=== PATIENT | female | born 1975 | race American Indian/Alaskan Native ===

== ENCOUNTER 2017-07-04 23:15 | Inpatient (IN) | payer MEDICAID ==
[2017-07-05 00:09] LABS: Basophils % (Auto) 0.6 % (0.0-1.8); Eosinophils % (Auto) 2.6 % (0.0-4.3); Mean Corpuscular HGB Conc 29 % (30-34); Platelet Count 619 K/mm3 (140-440); Red Blood Count 4.33 M/mm3 (3.65-5.03); White Blood Count 12.3 K/mm3 (4.5-11.0)
[2017-07-05 00:10] LABS: Hemoglobin 7.2 gm/dl (10.1-14.3)
[2017-07-05 00:11] LABS: Mean Corpuscular Hemoglobin 17 pg (28-32); Mean Corpuscular Volume 58 fl (79-97); Red Cell Distribution Width 22.2 % (13.2-15.2)
[2017-07-05 00:27] LABS: Anion Gap 19 mmol/L; BUN/Creatinine Ratio 11; Blood Urea Nitrogen 8 mg/dL (7-17); Calcium 8.4 mg/dL (8.4-10.2); Carbon Dioxide 22 mmol/L (22-30); Chloride 100.4 mmol/L (98-107); Glucose 129 mg/dL (65-100); Potassium 3.7 mmol/L (3.6-5.0); Sodium 138 mmol/L (137-145)
[2017-07-05 00:39] LABS: Urine Drugs of Abuse Note Disclamer
[2017-07-05 01:04] LABS: Bilirubin,Urine NEG (Negative); Blood,Urine LG (Negative); Ketones,Urine NEG (Negative); Leukocyte Esterase,Urine SM (Negative); Mucus,Urine FEW /HPF; Nitrite,Urine NEG (Negative)
[2017-07-05] MEDS ORDERED: NACL 0.9% 1000 ML 1,000 ML IV ONE (03:00)
[2017-07-05] MEDS ORDERED: NACL 0.9% 500 ML 500 ML IV ONE (03:10)
--- NOTE | 2017-07-05 03:17 | Emergency Department Report ---
ED Psych HPI - General Chief Complaint: Psych Stated Complaint: MH/MED REFILL Time Seen by Provider: 07/05/17 02:33 Source: patient Mode of arrival: Ambulatory Limitations: No Limitations - History of Present Illness Initial Comments: 41-year-old female with a past medical history of hypertension, bipolar, schizophrenia, and iron deficiency anemia presents to the hospital to the hospital with complaints of suicidal ideation 2 days. Does not have a plan. She has been noncompliant with all his psychiatric medications because she ran out 3 weeks ago. She is having voices telling her "she should have gotten ". She is also had a homicidal thoughts towards her mother for giving to her and she does not like her mother. Question patient complains of shortness of breath and lightheadedness, and fatigue today. She states her last menstrual cycle was heavy and has some mild residual spotting. She denies melena, hematochezia. She is compliant with iron tablets and reports a previous history of blood transfusion. Patient also complains of mild generalized abdominal pain which she states feels like she strained her muscle. - Related Data Home Medications Medication Instructions Recorded Confirmed Last Taken QUEtiapine [SEROquel] 300 mg PO QHS 06/15/13 06/15/13 07/01/13 11:00 1 tablet traZODone [Desyrel] 50 mg PO QHS 06/15/13 06/15/13 07/01/13 10:00 1 tablet FLUoxetine [Prozac] 20 mg PO QDAY 07/01/13 07/01/13 07/01/13 10:00 1 tablet Previous Rx's Medication Instructions Recorded Last Taken Type Benztropine [Cogentin] 1 mg PO DAILY #30 tab 01/01/14 Unknown Rx Divalproex ER [Depakote ER] 1,500 mg PO QHS #90 tablet 01/01/14 Unknown Rx Haloperidol [Haldol] 5 mg PO QHS #30 tablet 01/01/14 Unknown Rx Sertraline [Zoloft] 100 mg PO QAM #30 tablet 01/01/14 Unknown Rx traZODone [Desyrel] 100 mg PO QHS #30 tablet 01/01/14 Unknown Rx Allergies Allergy/AdvReac Type Severity Reaction Status Date / Time No Known Allergies Allergy Verified 04/18/15 14:55 ED Review of Systems ROS: Stated complaint: MH/MED REFILL Other details as noted in HPI Comment: All other systems reviewed and negative Other: Constitutional: No fevers chills Eyes: No eye pain visual changes ENT: No ear pain or throat pain Neck: Denies pain Respiratory: Denies cough Cardiovascular: Denies chest pain GI: Denies nausea, vomiting, or diarrhea : Denies dysuria Musculoskeletal: Denies back pain Skin: Denies rash, lesions, erythema Neurologic: Denies headache, numbness, weakness Psychiatric: Aspiration ED Past Medical Hx - Past Medical History Hx Hypertension: Yes Hx Psychiatric Treatment: Yes (BIPOLAR, Schizophrenia) Additional medical history: Bipolar, Schizophrenia, Chronic pain - Surgical History Past Surgical History?: No - Social History Smoking Status: Never Smoker Substance Use Type: None - Medications Home Medications: Home Medications Medication Instructions Recorded Confirmed Last Taken Type QUEtiapine [SEROquel] 300 mg PO QHS 06/15/13 06/15/13 07/01/13 11:00 History 1 tablet traZODone [Desyrel] 50 mg PO QHS 06/15/13 06/15/13 07/01/13 10:00 History 1 tablet FLUoxetine [Prozac] 20 mg PO QDAY 07/01/13 07/01/13 07/01/13 10:00 History 1 tablet Benztropine [Cogentin] 1 mg PO DAILY #30 tab 01/01/14 Unknown Rx Divalproex ER [Depakote ER] 1,500 mg PO QHS #90 tablet 01/01/14 Unknown Rx Haloperidol [Haldol] 5 mg PO QHS #30 tablet 01/01/14 Unknown Rx Sertraline [Zoloft] 100 mg PO QAM #30 tablet 01/01/14 Unknown Rx traZODone [Desyrel] 100 mg PO QHS #30 tablet 01/01/14 Unknown Rx ED Physical Exam - General Limitations: No Limitations - Other Other exam information: General: No limitations, patient is alert in no acute distress Head exam: Atraumatic, normocephalic Eyes exam: Normal appearance ENT: Moist mucous membrane, normal oropharynx Neck exam: Normal inspection, full range of motion, no meningismus nontender Respiratory exam: Clear to auscultation bilateral, no wheezes, rales, crackles Cardiovascular: Normal rate and rhythm, normal heart sounds Abdomen: Soft, nondistended, mild generalized tenderness to palpation, with normal bowel sounds, no rebound, or guarding Rectal: Guaiac positive, brown stool, no gross blood Extremity: Full range of motion normal inspection no deformity, tenderness or edema Back: Normal Inspection, full range of motion, no tenderness Neurologic: Alert, oriented x3, cranial nerves intact, no motor or sensory deficit Psychiatric: normal affect, normal mood Skin: Warm, dry, intact ED Course Vital Signs 07/04/17 07/04/17 07/05/17 23:45 23:47 03:11 Temperature 98.1 F 98.1 F 98.3 F Pulse Rate 104 H 104 H 103 H Respiratory 20 18 20 Rate Blood Pressure 159/87 Blood Pressure 159/87 130/85 [Right] O2 Sat by Pulse 99 100 99 Oximetry 07/05/17 03:16 Temperature Pulse Rate Respiratory 20 Rate Blood Pressure Blood Pressure [Right] O2 Sat by Pulse 100 Oximetry - Reevaluation(s) Reevaluation #1: 07/05/17 03:17 Positive orthostatics with increase in heart rate with standing ED Medical Decision Making - Lab Data Result diagrams: 07/04/17 23:56 07/04/17 23:56 Lab Results 07/04/17 07/04/17 07/04/17 Range/Units 23:56 23:56 23:56 WBC 12.3 H (4.5-11.0) K/mm3 RBC 4.33 (3.65-5.03) M/mm3 Hgb 7.2 L (10.1-14.3) gm/dl Hct 25.0 L (30.3-42.9) % MCV 58 L (79-97) fl MCH 17 L (28-32) pg MCHC 29 L (30-34) % RDW 22.2 H (13.2-15.2) % Plt Count 619 H (140-440) K/mm3 Lymph % (Auto) 35.4 H (13.4-35.0) % [place] % (Auto) 5.5 (0.0-7.3) % Eos % (Auto) 2.6 (0.0-4.3) % Baso % (Auto) 0.6 (0.0-1.8) % Lymph # 4.3 (1.2-5.4) K/mm3 [place] # 0.7 (0.0-0.8) K/mm3 Eos # 0.3 (0.0-0.4) K/mm3 Baso # 0.1 (0.0-0.1) K/mm3 Seg Neutrophils % 55.9 (40.0-70.0) % Seg Neutrophils # 6.9 (1.8-7.7) K/mm3 Sodium 138 (137-145) mmol/L Potassium 3.7 (3.6-5.0) mmol/L Chloride 100.4 (98-107) mmol/L Carbon Dioxide 22 (22-30) mmol/L Anion Gap 19 mmol/L BUN 8 (7-17) mg/dL Creatinine 0.7 (0.7-1.2) mg/dL Estimated GFR > 60 ml/min BUN/Creatinine Ratio 11 % Glucose 129 H (65-100) mg/dL Calcium 8.4 (8.4-10.2) mg/dL HCG, Qual (Negative) Urine Color (Yellow) Urine Turbidity (Clear) Urine pH (5.0-7.0) Ur Specific Hand[place] (1.003-1.030) Urine Protein (Negative) mg/dL Urine Glucose (UA) (Negative) mg/dL Urine Ketones (Negative) mg/dL Urine Blood (Negative) Urine Nitrite (Negative) Urine Bilirubin (Negative) Urine Urobilinogen (<2.0) mg/dL Ur Leukocyte Esterase (Negative) Urine WBC (Auto) (0.0-6.0) /HPF Urine RBC (Auto) (0.0-6.0) /HPF U Epithel Cells (Auto) (0-13.0) /HPF Urine Mucus /HPF Urine Opiates Screen Urine Methadone Screen Ur Barbiturates Screen Ur Phencyclidine Scrn Ur Amphetamines Screen U Benzodiazepines Scrn Urine Cocaine Screen U Marijuana (THC) Screen Drugs of Abuse Note Plasma/Serum Alcohol < 0.01 (0-0.07) gm% 07/04/17 07/05/17 07/05/17 Range/Units 23:56 00:34 00:34 WBC (4.5-11.0) K/mm3 RBC (3.65-5.03) M/mm3 Hgb (10.1-14.3) gm/dl Hct (30.3-42.9) % MCV (79-97) fl MCH (28-32) pg MCHC (30-34) % RDW (13.2-15.2) % Plt Count (140-440) K/mm3 Lymph % (Auto) (13.4-35.0) % [place] % (Auto) (0.0-7.3) % Eos % (Auto) (0.0-4.3) % Baso % (Auto) (0.0-1.8) % Lymph # (1.2-5.4) K/mm3 [place] # (0.0-0.8) K/mm3 Eos # (0.0-0.4) K/mm3 Baso # (0.0-0.1) K/mm3 Seg Neutrophils % (40.0-70.0) % Seg Neutrophils # (1.8-7.7) K/mm3 Sodium (137-145) mmol/L Potassium (3.6-5.0) mmol/L Chloride (98-107) mmol/L Carbon Dioxide (22-30) mmol/L Anion Gap mmol/L BUN (7-17) mg/dL Creatinine (0.7-1.2) mg/dL Estimated GFR ml/min BUN/Creatinine Ratio % Glucose (65-100) mg/dL Calcium (8.4-10.2) mg/dL HCG, Qual Negative (Negative) Urine Color Yellow (Yellow) Urine Turbidity Clear (Clear) Urine pH 5.0 (5.0-7.0) Ur Specific Handley 1.014 (1.003-1.030) Urine Protein 30 mg/dl (Negative) mg/dL Urine Glucose (UA) Neg (Negative) mg/dL Urine Ketones Neg (Negative) mg/dL Urine Blood Lg (Negative) Urine Nitrite Neg (Negative) Urine Bilirubin Neg (Negative) Urine Urobilinogen 2.0 (<2.0) mg/dL Ur Leukocyte Esterase Sm (Negative) Urine WBC (Auto) 11.0 H (0.0-6.0) /HPF Urine RBC (Auto) 10.0 (0.0-6.0) /HPF U Epithel Cells (Auto) 26.0 H (0-13.0) /HPF Urine Mucus Few /HPF Urine Opiates Screen Presumptive negative Urine Methadone Screen Presumptive negative Ur Barbiturates Screen Presumptive negative Ur Phencyclidine Scrn Presumptive negative Ur Amphetamines Screen Presumptive negative U Benzodiazepines Scrn Presumptive negative Urine Cocaine Screen Presumptive negative U Marijuana (THC) Screen Presumptive negative Drugs of Abuse Note Disclamer Plasma/Serum Alcohol (0-0.07) gm% - EKG Data -: EKG Interpreted by Me EKG shows normal: sinus rhythm (qrs 16), axis (qrs 16), QRS complexes (103), ST- T waves (no stemi/t inv. flat t v4-v6) Rate: normal (81) - Medical Decision Making 1013 signed Unable to medically clear pt at this time. significant Hemoglobin change compared to 2015. Pt is symptomatic and therefore requires a blood transfusion. 2 units PRBCs ordered. IRon profile added to blood work. ua has wbc but also high epi cells so likley a contaminate. no urine sx reported Guaiac-positive stools but no gross bleeding or melena - Differential Diagnosis SI, HI, psychosis, noncompliance, dehydration, anemia, Critical Care Time: No Critical care attestation.: If time is entered above; I have spent that time in minutes in the direct care of this critically ill patient, excluding procedure time. ED Disposition Clinical Impression: Symptomatic anemia, Suicidal ideation, Depression, Auditory hallucinations, Hypertension, well controlled Disposition: DC-09 OP ADMIT IP TO THIS HOSP Is pt being admited?: Yes Condition: Stable Time of Disposition: 03:23 (Dr Santos/hospitalist)
[2017-07-05] MEDS ORDERED: ZOFRAN IV PRN (04:37)
[2017-07-05] MEDS ORDERED: TYLENOL PO PRN (04:37)
[2017-07-05] MEDS ORDERED: DULCOLAX PR PRN (04:37)
[2017-07-05] MEDS ORDERED: MILK OF MAGNESIA PO PRN (04:37)
--- NOTE | 2017-07-05 06:11 | History and Physical Report ---
History of Present Illness Date of examination: 07/05/17 Date of admission: 07/05/17 04:37 History of present illness: 41-year-old male with a history of bipolar Schizophrenia, hypertension who has been off her medication 2 weeks and to emergency room with complaints of hallucinations, homicidal and suicidal ideations. Also complained of fatigue, shortness of breath Review Of Systems: Constitutional: no weight loss Ears, eyes, nose, mouth and throat: no nasal congestion, no nasal discharge, no sinus pressure, blurry vision, diplopia Neck: No neck pain or rigidity. Cardiovascular: no chest pain, orthopnea, palpitations Respiratory: No s cough Gastrointestinal: abdominal pain, hematochezia Genitourinary : no dysuria, frequency , hematuria Musculoskeletal: no muscle ache Integumentary: no rash, no pruritis Neurological: no parathesias, focal weakness Endocrine: no cold or heat intolerance, no polyuria or polydipsia Hematologic/Lymphatic: no easy bruising, no easy bleeding, no gland swelling Allergic/Immunologic: no urticaria, no angioedema. PAST MEDICAL HISTORY:bipolar Schizophrenia, hypertension PAST SURGICAL HISTORY: None FAMILY HISTORY:Schizophrenia SOCIAL HISTORY: Denies alcohol, tobacco, drugs Medications and Allergies Allergies Allergy/AdvReac Type Severity Reaction Status Date / Time No Known Allergies Allergy Verified 04/18/15 14:55 Home Medications Medication Instructions Recorded Confirmed Last Taken Type QUEtiapine [SEROquel] 300 mg PO QHS 06/15/13 06/15/13 07/01/13 11:00 History 1 tablet traZODone [Desyrel] 50 mg PO QHS 06/15/13 06/15/13 07/01/13 10:00 History 1 tablet FLUoxetine [Prozac] 20 mg PO QDAY 07/01/13 07/01/13 07/01/13 10:00 History 1 tablet Benztropine [Cogentin] 1 mg PO DAILY #30 tab 01/01/14 Unknown Rx Divalproex ER [Depakote ER] 1,500 mg PO QHS #90 tablet 01/01/14 Unknown Rx Haloperidol [Haldol] 5 mg PO QHS #30 tablet 01/01/14 Unknown Rx Sertraline [Zoloft] 100 mg PO QAM #30 tablet 01/01/14 Unknown Rx traZODone [Desyrel] 100 mg PO QHS #30 tablet 01/01/14 Unknown Rx Active Meds: Active Medications Acetaminophen (Tylenol) 650 mg PO Q4H PRN PRN Reason: Pain MILD(1-3)/Fever >100.5/BOJORQUEZ Benztropine Mesylate (Cogentin) 1 mg PO DAILY [facility] Bisacodyl (Dulcolax) 10 mg [place] QDAY PRN PRN Reason: Constipation unrelieved by MOM Divalproex Sodium (Depakote Er) 1,500 mg PO QHS [facility] Magnesium Hydroxide (Milk Of Magnesia) 30 ml PO Q4H PRN PRN Reason: Constipation Ondansetron HCl (Zofran) 4 mg IV Q8H PRN PRN Reason: N/V unrelieved by Reglan Quetiapine Fumarate (Seroquel) 300 mg PO QHS [facility] Exam - Physical Exam Narrative exam: Gen. appearance: Patient lying in bed in no acute distress HEENT: Normocephalic/atraumatic, pupils equal round reactive to light, extra alkaline movement intact, no scleral icterus, no JVD or thyromegaly or nodule, neck is supple, mucous membrane moist, no erythema or exudate Heart: S1-S2, regular rate and rhythm Lungs: Clear to auscultation bilateral breathing comfortable Abdomen: Positive bowel sounds, nontender, nondistended, no organomegaly Extremities: No edema, cyanosis, clubbing Neuro:: Oriented 3 , cranial nerves II-12 intact, speech, motor intact Skin: No rash, nodules, warm dry - Constitutional Vitals: Temp Pulse Resp BP Pulse Ox 98.3 F 103 H 20 130/85 100 07/05/17 03:11 07/05/17 03:11 07/05/17 03:16 07/05/17 03:11 07/05/17 03:16 Results - Labs CBC & Chem 7: 07/04/17 23:56 07/04/17 23:56 Assessment and Plan Assessment Homicidal or suicidal ideation Symptomatic ANEMIA Heme-positive stool Schizophrenia Plan Admit to medicine Transfuse packed red blood Consult psych, place with 1013, sitter Consult GI Restart appropriate outpatient medication
[2017-07-05] MEDS ORDERED: NACL 0.9% 500 ML 500 ML ONE (09:18)
[2017-07-05] MEDS ORDERED: COGENTIN PO SCH (10:00)
[2017-07-05] MEDS ORDERED: PROzac PO SCH ×2 (10:00→12:00)
--- NOTE | 2017-07-05 11:06 | Gastroenterology Consultation ---
<SHAWN FAY - Last Filed: 07/05/17 11:20> History of Present Illness - Reason for Consult Consult date: 07/05/17 anemia/heme +stool Requesting physician: SAMANTHA SPRAGUE - History of Present Illness Patient is a 41 y/o female with PMH of HTN, bipolar, schizophrenia, SHARI who presented to ED with c/o hallucinations, homicidal and suicidal ideations, fatigue, and SOB. She admits to being off all psychiatric medications x 2-3 weeks. HGB on admission was noted to be 7.2. GI has been consulted for anemia and heme +stool. This am pt was resting on stretcher with 1 unit PRBCs transfusion. No acute distress noted. No hematemesis, melena, or hematochezia. Stool was brown on rectal exam but active vaginal bleeding was noted. Pt states her menstrual cycles have been irregular with associated heavy bleeding. Current cycle has been present x 20 days per pt. Denies fever, CP, dizziness, SOB, wt loss, abd pain, N/V, diarrhea, or constipation. Takes Ibuprofen on average of 3 x per week. No hx of liver disease or PUD. No Fhx of GI cancers. No previous EGD or colonoscopy. Past History Past Medical History: anemia, hypertension, other (bipolar, schizophrenia) Past Surgical History: No surgical history Social history: lives with family. denies: smoking, alcohol abuse, prescription drug abuse Family history: other (schizophrenia) Medications and Allergies Allergies Allergy/AdvReac Type Severity Reaction Status Date / Time No Known Allergies Allergy Verified 04/18/15 14:55 Home Medications Medication Instructions Recorded Confirmed Last Taken Type QUEtiapine [SEROquel] 300 mg PO QHS 06/15/13 07/05/17 07/01/13 11:00 History 1 tablet traZODone [Desyrel] 50 mg PO QHS 06/15/13 07/05/17 07/01/13 10:00 History 1 tablet FLUoxetine [Prozac] 20 mg PO QDAY 07/01/13 07/05/17 07/01/13 10:00 History 1 tablet Benztropine [Cogentin] 1 mg PO DAILY #30 tab 01/01/14 07/05/17 Unknown Rx Divalproex ER [Depakote ER] 1,500 mg PO QHS #90 tablet 01/01/14 07/05/17 Unknown Rx Haloperidol [Haldol] 5 mg PO QHS #30 tablet 01/01/14 07/05/17 Unknown Rx Sertraline [Zoloft] 100 mg PO QAM #30 tablet 01/01/14 07/05/17 Unknown Rx Active Meds: Active Medications Acetaminophen (Tylenol) 650 mg PO Q4H PRN PRN Reason: Pain MILD(1-3)/Fever >100.5/BOJORQUEZ Benztropine Mesylate (Cogentin) 1 mg PO DAILY [facility] Last Admin: 07/05/17 10:24 Dose: 1 mg Bisacodyl (Dulcolax) 10 mg [place] QDAY PRN PRN Reason: Constipation unrelieved by MOM Divalproex Sodium (Depakote Er) 1,500 mg PO QHS [facility] Magnesium Hydroxide (Milk Of Magnesia) 30 ml PO Q4H PRN PRN Reason: Constipation Ondansetron HCl (Zofran) 4 mg IV Q8H PRN PRN Reason: N/V unrelieved by Reglan Quetiapine Fumarate (Seroquel) 300 mg PO QHS [facility] Review of Systems - Review of Systems All systems: negative Constitutional: fatigue Gastrointestinal: no hematemesis, no melena, no hematochezia Female Genitourinary: other (vaginal bleeding) Exam - Constitutional Vital Signs: Temp Pulse Resp BP Pulse Ox 98.5 F 86 16 140/68 94 07/05/17 10:32 07/05/17 10:32 07/05/17 10:32 07/05/17 10:32 07/05/17 10:32 General appearance: no acute distress, obese - EENT Eyes: PERRL, EOM intact ENT: hearing intact - Neck Neck: supple, normal ROM - Respiratory Respiratory: bilateral: CTA - Cardiovascular Rhythm: regular Heart Sounds: Present: S1 & S2 Extremities: No edema - Gastrointestinal General gastrointestinal: Present: soft, non-tender, non-distended, normal bowel sounds, other (obese) Rectal Exam: normal exam-external/orifice, normal rectal tone, stool brown - Genitourinary Female Genitourinary: other (vaginal bleeding) - Integumentary Integumentary: Present: warm, dry - Labs CBC & Chem 7: 07/04/17 23:56 07/04/17 23:56 Assessment and Plan 1.anemia 2.heme +stool 3.vaginal bleeding 4.Homicidal or suicidal ideation 5.schizophrenia -HGB 7.2- 1unit PRBCs transfusing -continue to monitor H/H and transfuse as needed -hold blood thinning medications -active vaginal bleeding but no hematemesis, melena, or hematochzia- rectal exam revealed brown stool -hemodynamically stable -etiology unclear- possibly 2/2 heavy irregular menstrual cycles -recommend a [employer] consult -Will schedule for EGD and colonoscopy in am -clear liquid diet today, then NPO after MN -will follow <FOZIA TRUJILLO R - Last Filed: 07/05/17 17:10> Medications and Allergies Active Meds: Active Medications Acetaminophen (Tylenol) 650 mg PO Q4H PRN PRN Reason: Pain MILD(1-3)/Fever >100.5/BOJORQUEZ Benztropine Mesylate (Cogentin) 0.5 mg PO BID [facility] Bisacodyl (Dulcolax) 10 mg [place] QDAY PRN PRN Reason: Constipation unrelieved by MOM Haloperidol (Haldol) 5 mg PO BID [facility] Magnesium Hydroxide (Milk Of Magnesia) 30 ml PO Q4H PRN PRN Reason: Constipation Ondansetron HCl (Zofran) 4 mg IV Q8H PRN PRN Reason: N/V unrelieved by Reglan Trazodone HCl (Desyrel) 50 mg PO QHS [facility] Exam - Constitutional Vital Signs: Temp Pulse Resp BP Pulse Ox 98.8 F 83 16 114/51 99 07/05/17 13:47 07/05/17 13:47 07/05/17 13:47 07/05/17 13:47 07/05/17 13:47 - Labs CBC & Chem 7: 07/04/17 23:56 07/04/17 23:56 Lab Results: Laboratory Results - last 24 hr 07/05/17 15:56 AST 19 ALT 15 Alkaline Phosphatase 94 Assessment and Plan Anemia likely due to menorrhagia. Will do EGD/colon to clear GI tract, kallie given NSAIDs.
--- NOTE | 2017-07-05 12:57 | Consultation ---
History of Present Illness - Reason for Consult Consult date: 07/05/17 Reason for consult: Mental Health Evaluation Requesting physician: CAM YOON - Chief Complaint Chief complaint: "The voices are bad" - History of Present Psychiatric Illness 41-year-old female with a past medical history of hypertension, bipolar, schizophrenia, and iron deficiency anemia presents to the hospital to the hospital with complaints of suicidal ideation 2 days. Today patient is calm, cooperative, but withdrawn during the assessment. She stated that she want to feel happy, but the voices continue to tell her she is "worthless." She stated the voices are overwhelming and want them to stop. She stated that the voices has caused her to be suicidal with a plan to overdose. She stated a past suicide attempt by overdosing on pills in the past. She stated that she deals with hearing voices all the time. She stated having erratic sleep, but denies a poor appetite. She denies HI's and VH's. She denies being depressed, but stated feeling sad. She denies recreational drug use and alcohol consumption (etoh). She stated that she takes Haldol, Trazodone, and Depakote. Medications and Allergies Allergies Allergy/AdvReac Type Severity Reaction Status Date / Time No Known Allergies Allergy Verified 04/18/15 14:55 Home Medications Medication Instructions Recorded Confirmed Last Taken Type QUEtiapine [SEROquel] 300 mg PO QHS 06/15/13 07/05/17 07/01/13 11:00 History 1 tablet traZODone [Desyrel] 50 mg PO QHS 06/15/13 07/05/17 07/01/13 10:00 History 1 tablet FLUoxetine [Prozac] 20 mg PO QDAY 07/01/13 07/05/17 07/01/13 10:00 History 1 tablet Benztropine [Cogentin] 1 mg PO DAILY #30 tab 01/01/14 07/05/17 Unknown Rx Divalproex ER [Depakote ER] 1,500 mg PO QHS #90 tablet 01/01/14 07/05/17 Unknown Rx Haloperidol [Haldol] 5 mg PO QHS #30 tablet 01/01/14 07/05/17 Unknown Rx Sertraline [Zoloft] 100 mg PO QAM #30 tablet 01/01/14 07/05/17 Unknown Rx Active Meds: Active Medications Acetaminophen (Tylenol) 650 mg PO Q4H PRN PRN Reason: Pain MILD(1-3)/Fever >100.5/BOJORQUEZ Bisacodyl (Dulcolax) 10 mg [place] QDAY PRN PRN Reason: Constipation unrelieved by MOM Magnesium Hydroxide (Milk Of Magnesia) 30 ml PO Q4H PRN PRN Reason: Constipation Ondansetron HCl (Zofran) 4 mg IV Q8H PRN PRN Reason: N/V unrelieved by Reglan Polyethylene Glycol/Electrolytes (Golytely) 4,000 ml PO ONCE ONE Stop: 07/05/17 15:01 Mental Status Exam - Vital signs Last Vital Signs Temp 98.5 F 07/05/17 12:17 Pulse 83 07/05/17 12:17 Resp 16 07/05/17 12:17 BP 128/96 07/05/17 12:17 Pulse Ox 99 07/05/17 12:17 - Exam Narrative exam: MSE: Appearance: calm, cooperative Behavior: regular eye contact Speech: regular rate and tone Mood: withdrawn, sad Affect: flat Thought Process: circumstantial Thought Content: denies HI's and VH, disorganized Motor Activity: ambulatory Cognition: A/Ox 3 Insight: variable Judgment: variable Results Result Diagrams: 07/04/17 23:56 07/04/17 23:56 All other labs normal. Assessment and Plan Assessment and plan: Impression: Schizoaffective DO. Today patient is calm, cooperative, but withdrawn during the assessment. Patient endorse SI's with a plan to overdose. DDx: R/O Bipolar DO, R/O MDD, Schizophrenia Recommendation/Plan: Continue 1013 with placement to inpatient psy services. Start Haldol 5 mg PO BID for psychosis, Cogentin 0.5 mg PO BID for EPS prevention, Trazodone 50 mg PO HS for sleep consolidation, and Depakote 500 mg PO BID for mood. Discussed possible suicidality/medication induced pavithra with patient reference Trazodone.
[2017-07-05] MEDS ORDERED: Fluarix Quad 2017-2018(36 MOS+ IM ONE (13:45)
[2017-07-05] MEDS ORDERED: GOLYTELY PO ONE (15:00)
[2017-07-05 17:00] LABS: Alanine Aminotransferase 15 units/L (7-56); Alkaline Phosphatase 94 units/L (35-129)
--- NOTE | 2017-07-05 17:33 | Consultation ---
History of Present Illness Consult date: 07/05/17 Reason for consult: menorrhagia History of present illness: Asked to see this 41-year-old who presents with co-morbid's including schizophrenia, HTN,SHARI and symptomatic anemia. She was noted to have vaginal bleeding but also dark-colored stool; GI was consulted. I am consulted for vaginal bleeding History is difficult due to patient's mental status, but she gives history of having heavy vaginal bleeding 20 days, used 4 pads per day. Bleeding stopped 2 days ago and she is spotting at this time. I am not quite sure of prior menstrual history but patient claims to be regular. 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 denies: smoking Medications and Allergies Allergies Allergy/AdvReac Type Severity Reaction Status Date / Time No Known Allergies Allergy Verified 04/18/15 14:55 Home Medications Medication Instructions Recorded Confirmed Last Taken Type QUEtiapine [SEROquel] 300 mg PO QHS 06/15/13 07/05/17 07/01/13 11:00 History 1 tablet traZODone [Desyrel] 50 mg PO QHS 06/15/13 07/05/17 07/01/13 10:00 History 1 tablet FLUoxetine [Prozac] 20 mg PO QDAY 07/01/13 07/05/17 07/01/13 10:00 History 1 tablet Benztropine [Cogentin] 1 mg PO DAILY #30 tab 01/01/14 07/05/17 Unknown Rx Divalproex ER [Depakote ER] 1,500 mg PO QHS #90 tablet 01/01/14 07/05/17 Unknown Rx Haloperidol [Haldol] 5 mg PO QHS #30 tablet 01/01/14 07/05/17 Unknown Rx Sertraline [Zoloft] 100 mg PO QAM #30 tablet 01/01/14 07/05/17 Unknown Rx Active Meds: Active Medications Acetaminophen (Tylenol) 650 mg PO Q4H PRN PRN Reason: Pain MILD(1-3)/Fever >100.5/BOJORQUEZ Benztropine Mesylate (Cogentin) 0.5 mg PO BID [facility] Bisacodyl (Dulcolax) 10 mg [place] QDAY PRN PRN Reason: Constipation unrelieved by MOM Haloperidol (Haldol) 5 mg PO BID [facility] Magnesium Hydroxide (Milk Of Magnesia) 30 ml PO Q4H PRN PRN Reason: Constipation Ondansetron HCl (Zofran) 4 mg IV Q8H PRN PRN Reason: N/V unrelieved by Reglan Trazodone HCl (Desyrel) 50 mg PO QHS [facility] Review of Systems Constitutional: no fever, no chills Cardiovascular: no chest pain, no orthopnea, no shortness of breath Respiratory: no shortness of breath, no dyspnea on exertion Gastrointestinal: no abdominal pain, no nausea Genitourinary: vaginal bleeding - Vital Signs Vital signs: Vital Signs Temp Pulse Resp BP Pulse Ox 98.1 F 104 H 20 159/87 99 07/04/17 23:45 07/04/17 23:45 07/04/17 23:45 07/04/17 23:45 07/04/17 23:45 Temp Pulse Resp BP Pulse Ox 98.8 F 83 16 114/51 99 07/05/17 13:47 07/05/17 13:47 07/05/17 13:47 07/05/17 13:47 07/05/17 13:47 - Physical Exam Abdomen: Positive: normal appearance, soft. Negative: distention, tenderness, guarding, rigidity Genitourinary (Female): Positive: normal external genitalia Cervix: Negative: lesion (bimanual exam), discharge Uterus: Positive: other (unable to palpate uterus due to body habitus) Adnexa: both: normal Extremities: Positive: normal Results Result Diagrams: 07/04/17 23:56 07/04/17 23:56 Abnormal lab results 07/05/17 Range/Units 15:56 Valproic Acid < 2.8 L (50-100) ug/mL All other labs normal. Assessment and Plan A: AUB/HMB -stable P: -Agree with blood transfusion -She is a patient of [facility]. Have spoken to the office and they are aware of her -She's currently not actively bleeding, no other LIBRARY CIRCULATION TECHNICIAN intervention needed in- house -She will benefit from outpatient workup including ultrasound and likely endometrial biopsy -Will sign off at this time, please call with questions - Patient Problems (1) Abnormal uterine bleeding (AUB) Current Visit: Yes Status: Acute
--- NOTE | 2017-07-05 18:26 | Event Note ---
Date: 07/12/17 Patient seen and examined medical records reviewed Admitted this morning with vaginal and GI bleeding, suicidal ideation Consults and recommendations noted in appreciated Continue current management Plan of care discussed with the patient and her nurse
[2017-07-05] MEDS: COGENTIN PO SCH (21:53)
[2017-07-05] MEDS: DESYREL PO SCH (21:53)
[2017-07-05] MEDS: HALDOL PO SCH (21:53)
[2017-07-06 06:03] LABS: Mean Corpuscular HGB Conc 30 % (30-34); Platelet Count 503 K/mm3 (140-440); Red Blood Count 4.38 M/mm3 (3.65-5.03); White Blood Count 9.4 K/mm3 (4.5-11.0)
[2017-07-06 06:13] LABS: Hemoglobin 8.2 gm/dl (10.1-14.3); INR 1.03 (0.87-1.13)
[2017-07-06 06:14] LABS: Hematocrit 27.7 % (30.3-42.9); Mean Corpuscular Hemoglobin 19 pg (28-32); Mean Corpuscular Volume 63 fl (79-97); Red Cell Distribution Width 29.3 % (13.2-15.2)
[2017-07-06 06:24] LABS: Anion Gap 16 mmol/L; BUN/Creatinine Ratio 8; Blood Urea Nitrogen 5 mg/dL (7-17); Calcium 8.2 mg/dL (8.4-10.2); Carbon Dioxide 25 mmol/L (22-30); Chloride 101.3 mmol/L (98-107); Glucose 84 mg/dL (65-100); Potassium 3.7 mmol/L (3.6-5.0); Sodium 139 mmol/L (137-145)
[2017-07-06 08:12] LABS: Anisocytosis 3+; Blastocytes % (Manual) 0 %; Microcytosis 2+; Polychromasia 2+
[2017-07-06 08:13] LABS: Target Cells Few; Tear Drop Cells Few
[2017-07-06 08:14] LABS: Diff Status Complete; Ovalocytes 1+; Platelet Estimate Consistent w Auto
[2017-07-06] MEDS: COGENTIN PO SCH ×2 (10:00→22:47)
[2017-07-06] MEDS: HALDOL PO SCH ×2 (10:00→22:47)
[2017-07-06] MEDS ORDERED: NACL 0.9% 1000 ML 1,000 ML ONE (11:02)
[2017-07-06] MEDS ORDERED: Fluarix Quad 2017-2018(36 MOS+ IM ONE (12:00)
--- NOTE | 2017-07-06 13:37 | Anesthesia Consultation ---
Anesthesia Consult and Med Hx Date of service: 07/06/17 - Airway Anesthetic Teeth Evaluation: Good ROM Head & Neck: Adequate Mental/Hyoid Distance: Adequate Mallampati Class: Class II Intubation Access Assessment: Probably Good - Pulmonary Exam CTA: Yes - Cardiac Exam Cardiac Exam: RRR - Pre-Operative Health Status ASA Pre-Surgery Classification: ASA3 Proposed Anesthetic Plan: MAC - Pulmonary Hx Asthma: No COPD: No Hx Pneumonia: No - Cardiovascular System Hx Hypertension: Yes - Central Nervous System Hx Psychiatric Problems: Yes (Pt states two times in Hospital.) - Endocrine Hx End Stage Renal Disease: No - Hematic Hx Anemia: Yes - Other Systems Hx Alcohol Use: No Hx Substance Use: No Hx Obesity: Yes (morbid)
[2017-07-06] MEDS ORDERED: PEPCID IV ONE (13:50)
[2017-07-06] MEDS ORDERED: NACL 0.9% 1000 ML 1,000 ML IV SCH (14:00)
[2017-07-06] MEDS ORDERED: PEPCID IV NR (14:00)
[2017-07-06] MEDS ORDERED: XYLOCAINE MPF 2% ONE (14:00)
--- NOTE | 2017-07-06 14:00 | Progress Note ---
Subjective - Reason for Consult Consult date: 07/06/17 Reason for consult: Psychiatry Follow-up - Chief Complaint Chief complaint: "The voices are going away" 41-year-old female with a past medical history of hypertension, bipolar, schizophrenia, and iron deficiency anemia presents to the hospital to the hospital with complaints of suicidal ideation 2 days. Today patient is calm and cooperative during the assessment. She stated that the voices that she was hearing on admission are starting to "cease." She stated that she had a procedure pending. She denies SI/HI's and VH's. She denies any side effects of her medications. Mental Status Exam - Vital signs Last Vital Signs Temp 98.3 F 07/06/17 13:19 Pulse 75 07/06/17 13:19 Resp 18 07/06/17 13:19 BP 118/62 07/06/17 13:19 Pulse Ox 98 07/06/17 13:19 - Exam Narrative exam: MSE: Appearance: calm, cooperative Behavior: regular eye contact Speech: regular rate and tone Mood: "okay" Affect: congruent to mood Thought Process: circumstantial Thought Content: denies SI/HI's and VH's, intermittent AH's Motor Activity: ambulatory Cognition: A/Ox 3 Insight: variable Judgment: variable Assessment and Plan Impression: Schizoaffective DO. Today patient is calm and cooperative during the assessment. Intermittent AH's. DDx: R/O Bipolar DO, R/O MDD, Schizophrenia Recommendation/Plan: Continue 1013. Will evaluate patient daily to determine proper dispo once medically cleared. Continue Haldol 5 mg PO BID for psychosis, Cogentin 0.5 mg PO BID for EPS prevention, Trazodone 50 mg PO HS for sleep consolidation, and Depakote 500 mg PO BID for mood. Discussed possible suicidality/medication induced pavithra with patient reference Trazodone.
[2017-07-06] MEDS ORDERED: DIPRIVAN 10 MG/ML IV ONE ×2 (15:04)
--- NOTE | 2017-07-06 15:45 | Post Operative Note ---
Pre-op diagnosis: Anemia, Heme + stool Post-op diagnosis: other (Normal EGD and colonoscopy) Findings: 1. Normal EGD and colonoscopy Procedure: EGD/Colonoscopy Anesthesia: MAC Surgeon: FOZIA TRUJILLO Estimated blood loss: none Condition: stable Disposition: floor (Anemia likely due to menorrhagia, and Heme + stool was likely due to vaginal bleed. Will sign off. Okay to go from GI standpoint.)
--- NOTE | 2017-07-06 16:30 | Post Anesthesia Evaluation ---
- Post Anesthesia Evaluation Patient Participated: Yes Airway Patent: Yes Stable Respiratory Function: Yes Temp > 96.8F: Yes Pain Manageable: Yes Adequeate Hydration: Yes Anesthesia Complications: No
--- NOTE | 2017-07-06 17:54 | Progress Note ---
Assessment and Plan Assessment and plan: --Symptomatically anemia Status post blood transfusion mild improvement of H&H --Heme positive stool; GI evaluated the patient, he EGD and colonoscopy to the Protonix and supportive care --History of menorrhagia, vaginal bleeding; CARBON ELECTRODES SUPERVISOR evaluated the patient, recommend outpatient evaluation -- Suicidal ideation; suicidal watch/1013 Psych following, recommended inpatient psych transfer once medically stable --History of schizophrenia; management per psychiatric --Morbid obesity; BMI 57, counseling done, dietary modification and exercise as tolerated and weight reduction May benefit by outpatient bariatric surgical evaluation for weight reduction program when medically stable --DVT prophylaxis; with Lovenox continue 1013 status, if EGD colonoscopy is negative, patient can be discharged and transferred to inpatient psych facility History Interval history: Patient seen and examined medical records reviewed Patient is scheduled for EGD today CARBON ELECTRODES SUPERVISOR has evaluated and recommended outpatient follow-up Patient has no new complaints cement finisher apprentice at the bedside Hospitalist Physical - Constitutional Vitals: Temp Pulse Resp BP Pulse Ox 97.5 F L 79 20 155/74 100 07/06/17 16:45 07/06/17 16:45 07/06/17 16:45 07/06/17 16:45 07/06/17 16:45 General appearance: Present: no acute distress, well-nourished, obese (morbidly obese) - EENT Eyes: Present: PERRL, EOM intact - Neck Neck: Present: supple, normal ROM - Respiratory Respiratory effort: normal Respiratory: bilateral: diminished, negative: rales, rhonchi, wheezing - Cardiovascular Rhythm: regular Heart Sounds: Present: S1 & S2 - Extremities Extremities: no ischemia, No edema Peripheral Pulses: within normal limits - Abdominal General gastrointestinal: soft, non-tender, non-distended, normal bowel sounds - Integumentary Integumentary: Present: clear, warm - Psychiatric Psychiatric: appropriate mood/affect, cooperative - Neurologic Neurologic: CNII-XII intact, moves all extremities Results - Labs CBC & Chem 7: 07/06/17 04:58 07/06/17 04:58 Labs: Laboratory Last Values WBC 9.4 K/mm3 (4.5-11.0) 07/06/17 04:58 RBC 4.38 M/mm3 (3.65-5.03) 07/06/17 04:58 Hgb 8.2 gm/dl (10.1-14.3) L 07/06/17 04:58 Hct 27.7 % (30.3-42.9) L 07/06/17 04:58 MCV 63 fl (79-97) L 07/06/17 04:58 MCH 19 pg (28-32) L 07/06/17 04:58 MCHC 30 % (30-34) 07/06/17 04:58 RDW 29.3 % (13.2-15.2) H 07/06/17 04:58 Plt Count 503 K/mm3 (140-440) H 07/06/17 04:58 Lymph % (Auto) 35.4 % (13.4-35.0) H 07/04/17 23:56 [place] % (Auto) 5.5 % (0.0-7.3) 07/04/17 23:56 Eos % (Auto) 2.6 % (0.0-4.3) 07/04/17 23:56 Baso % (Auto) 0.6 % (0.0-1.8) 07/04/17 23:56 Lymph # 4.3 K/mm3 (1.2-5.4) 07/04/17 23:56 [place] # 0.7 K/mm3 (0.0-0.8) 07/04/17 23:56 Eos # 0.3 K/mm3 (0.0-0.4) 07/04/17 23:56 Baso # 0.1 K/mm3 (0.0-0.1) 07/04/17 23:56 Add Manual Diff Complete 07/06/17 04:58 Total Counted 100 07/06/17 04:58 Seg Neutrophils % 55.9 % (40.0-70.0) 07/04/17 23:56 Seg Neuts % (Manual) 65.0 % (40.0-70.0) 07/06/17 04:58 Band Neutrophils % 0 % 07/06/17 04:58 Lymphocytes % (Manual) 27.0 % (13.4-35.0) 07/06/17 04:58 Reactive Lymphs % (Man) 0 % 07/06/17 04:58 Monocytes % (Manual) 3.0 % (0.0-7.3) 07/06/17 04:58 Eosinophils % (Manual) 4.0 % (0.0-4.3) 07/06/17 04:58 Basophils % (Manual) 1.0 % (0.0-1.8) 07/06/17 04:58 Metamyelocytes % 0 % 07/06/17 04:58 Myelocytes % 0 % 07/06/17 04:58 Promyelocytes % 0 % 07/06/17 04:58 Blast Cells % 0 % 07/06/17 04:58 Nucleated RBC % Not Reportable 07/06/17 04:58 Seg Neutrophils # 6.9 K/mm3 (1.8-7.7) 07/04/17 23:56 Seg Neutrophils # Man 6.1 K/mm3 (1.8-7.7) 07/06/17 04:58 Band Neutrophils # 0.0 K/mm3 07/06/17 04:58 Lymphocytes # (Manual) 2.5 K/mm3 (1.2-5.4) 07/06/17 04:58 Abs React Lymphs (Man) 0.0 K/mm3 07/06/17 04:58 Monocytes # (Manual) 0.3 K/mm3 (0.0-0.8) 07/06/17 04:58 Eosinophils # (Manual) 0.4 K/mm3 (0.0-0.4) 07/06/17 04:58 Basophils # (Manual) 0.1 K/mm3 (0.0-0.1) 07/06/17 04:58 Metamyelocytes # 0.0 K/mm3 07/06/17 04:58 Myelocytes # 0.0 K/mm3 07/06/17 04:58 Promyelocytes # 0.0 K/mm3 07/06/17 04:58 Blast Cells # 0.0 K/mm3 07/06/17 04:58 WBC Morphology Not Reportable 07/06/17 04:58 Hypersegmented Neuts Not Reportable 07/06/17 04:58 Hyposegmented Neuts Not Reportable 07/06/17 04:58 Hypogranular Neuts Not Reportable 07/06/17 04:58 Smudge Cells Not Reportable 07/06/17 04:58 Toxic Granulation Not Reportable 07/06/17 04:58 Toxic Vacuolation Not Reportable 07/06/17 04:58 Dohle Bodies Not Reportable 07/06/17 04:58 Pelger-Huet Anomaly Not Reportable 07/06/17 04:58 Trevor Rods Not Reportable 07/06/17 04:58 Platelet Estimate Consistent w auto 07/06/17 04:58 Clumped Platelets Not Reportable 07/06/17 04:58 Plt Clumps, EDTA Not Reportable 07/06/17 04:58 Large Platelets Not Reportable 07/06/17 04:58 Giant Platelets Not Reportable 07/06/17 04:58 Platelet Satelliting Not Reportable 07/06/17 04:58 Plt Morphology Comment Not Reportable 07/06/17 04:58 RBC Morphology Not Reportable 07/06/17 04:58 Dimorphic RBCs Yes 07/06/17 04:58 Polychromasia 2+ 07/06/17 04:58 Hypochromasia Not Reportable 07/06/17 04:58 Poikilocytosis Not Reportable 07/06/17 04:58 Anisocytosis 3+ 07/06/17 04:58 Microcytosis 2+ 07/06/17 04:58 Macrocytosis Not Reportable 07/06/17 04:58 Spherocytes Not Reportable 07/06/17 04:58 Pappenheimer Bodies Not Reportable 07/06/17 04:58 Sickle Cells Not Reportable 07/06/17 04:58 Target Cells Few 07/06/17 04:58 Tear Drop Cells Few 07/06/17 04:58 Ovalocytes 1+ 07/06/17 04:58 Helmet Cells Not Reportable 07/06/17 04:58 [place] Line Bodies Not Reportable 07/06/17 04:58 [place] Rings Not Reportable 07/06/17 04:58 Zayra Cells Not Reportable 07/06/17 04:58 Bite Cells Not Reportable 07/06/17 04:58 Crenated Cell Not Reportable 07/06/17 04:58 Elliptocytes Not Reportable 07/06/17 04:58 Acanthocytes (Spur) Not Reportable 07/06/17 04:58 Rouleaux Not Reportable 07/06/17 04:58 Hemoglobin C Crystals Not Reportable 07/06/17 04:58 Schistocytes Not Reportable 07/06/17 04:58 Malaria parasites Not Reportable 07/06/17 04:58 Stiven Bodies Not Reportable 07/06/17 04:58 Hem Pathologist Commnt No 07/06/17 04:58 PT 14.0 Sec. (12.2-14.9) 07/06/17 04:58 INR 1.03 (0.87-1.13) 07/06/17 04:58 Sodium 139 mmol/L (137-145) 07/06/17 04:58 Potassium 3.7 mmol/L (3.6-5.0) 07/06/17 04:58 Chloride 101.3 mmol/L (98-107) 07/06/17 04:58 Carbon Dioxide 25 mmol/L (22-30) 07/06/17 04:58 Anion Gap 16 mmol/L 07/06/17 04:58 BUN 5 mg/dL (7-17) L 07/06/17 04:58 Creatinine 0.6 mg/dL (0.7-1.2) L 07/06/17 04:58 Estimated GFR > 60 ml/min 07/06/17 04:58 BUN/Creatinine Ratio 8 % 07/06/17 04:58 Glucose 84 mg/dL (65-100) 07/06/17 04:58 Calcium 8.2 mg/dL (8.4-10.2) L 07/06/17 04:58 Iron 13 ug/dL (37-170) L 07/05/17 02:30 TIBC 451 mcg/dL (250-450) H 07/05/17 02:30 % Saturation 2.88 % 07/05/17 02:30 Transferrin 392 mg/dl (192-382) H 07/05/17 02:30 AST 19 units/L (5-40) 07/05/17 15:56 ALT 15 units/L (7-56) 07/05/17 15:56 Alkaline Phosphatase 94 units/L (35-129) 07/05/17 15:56 HCG, Qual Negative (Negative) 07/04/17 23:56 Urine Color Yellow (Yellow) 07/05/17 00:34 Urine Turbidity Clear (Clear) 07/05/17 00:34 Urine pH 5.0 (5.0-7.0) 07/05/17 00:34 Ur Specific [place] 1.014 (1.003-1.030) 07/05/17 00:34 Urine Protein 30 mg/dl mg/dL (Negative) 07/05/17 00:34 Urine Glucose (UA) Neg mg/dL (Negative) 07/05/17 00:34 Urine Ketones Neg mg/dL (Negative) 07/05/17 00:34 Urine Blood Lg (Negative) 07/05/17 00:34 Urine Nitrite Neg (Negative) 07/05/17 00:34 Urine Bilirubin Neg (Negative) 07/05/17 00:34 Urine Urobilinogen 2.0 mg/dL (<2.0) 07/05/17 00:34 Ur Leukocyte Esterase Sm (Negative) 07/05/17 00:34 Urine WBC (Auto) 11.0 /HPF (0.0-6.0) H 07/05/17 00:34 Urine RBC (Auto) 10.0 /HPF (0.0-6.0) 07/05/17 00:34 U Epithel Cells (Auto) 26.0 /HPF (0-13.0) H 07/05/17 00:34 Urine Mucus Few /HPF 07/05/17 00:34 Urine Opiates Screen Presumptive negative 07/05/17 00:34 Urine Methadone Screen Presumptive negative 07/05/17 00:34 Ur Barbiturates Screen Presumptive negative 07/05/17 00:34 Valproic Acid < 2.8 ug/mL (50-100) L 07/05/17 15:56 Ur Phencyclidine Scrn Presumptive negative 07/05/17 00:34 Ur Amphetamines Screen Presumptive negative 07/05/17 00:34 U Benzodiazepines Scrn Presumptive negative 07/05/17 00:34 Urine Cocaine Screen Presumptive negative 07/05/17 00:34 U Marijuana (THC) Screen Presumptive negative 07/05/17 00:34 Drugs of Abuse Note Disclamer 07/05/17 00:34 Plasma/Serum Alcohol < 0.01 gm% (0-0.07) 07/04/17 23:56 Blood Type O POSITIVE 07/05/17 03:27 Antibody Screen TNR 07/05/17 03:27 [facility] Antibody Screen Negative 07/05/17 03:27 Crossmatch See Detail 07/05/17 03:27
--- NOTE | 2017-07-06 19:28 | Operative Report ---
PROCEDURE: Upper endoscopy and colonoscopy. PREOPERATIVE DIAGNOSES: Iron deficiency anemia and Hemoccult positive stool. POSTOPERATIVE DIAGNOSIS: Normal upper endoscopy and colonoscopy. SEDATION: MAC by Anesthesia. HISTORY: The patient is a 41-year-old woman with multiple psychiatric problems including schizophrenia, who presented with anemia with a hemoglobin of 7.2, an MCV of 58 and then iron saturation of 13%. She had vaginal bleeding and she was noted to have Hemoccult positive stool. She had no GI symptoms. Procedure, indications, risks, and benefits were explained and consent was obtained. DESCRIPTION OF PROCEDURE: The patient was placed in left lateral decubitus position and sedated. Fuji video upper endoscope was passed through the mouth and oropharynx into the descending duodenum. Scope was then gradually withdrawn with close inspection of the mucosa. FINDINGS: Normal appearing esophagus, stomach, duodenum, and bulb. No bleeding sources identified. The patient was subsequently rotated and a colonoscopy was performed using the Fuji video colonoscope. The scope was passed through the rectum after digital examination and passed with minimal difficulty to the cecum, which was identified by the ileocecal valve and the appendiceal orifice. Scope was then gradually withdrawn with close inspection of the mucosa. Prep was good. FINDINGS: Visualized colonic mucosa was normal appearing with no evidence of mass lesions, vascular lesions, or inflammation. No source of bleeding was identified. The patient tolerated both procedures well without immediate complications. IMPRESSION: 1. Normal upper endoscopy and colonoscopy. No gastrointestinal source of bleeding identified. 2. Iron deficiency. Follow up with GUIDANCE ADVISER and oral iron supplementation. We will sign off. Please call us as needed. JOB# [id number] HRC/NTS
[2017-07-06] MEDS: DESYREL PO SCH (22:47)
--- NOTE | 2017-07-07 08:27 | Discharge Summary ---
Providers - Providers Date of Admission: 07/05/17 04:37 Date of discharge: 07/07/17 Attending physician: JACOB EDMONDS 07/05/17 06:16 Consult to Physician [CONS] Routine Consulting Provider: FOZIA TRUJILLO Reason For Exam: heme pos stool, anemia Notified:: yarn packer pl call 07/05/17 08:00 psychiatry consult [Consult to Mental Health] [CONS] Routine Reason For Exam: suicidal/[address] consult to:: RUSTAM Notified:: RUSTAM Phone number called:: [phone] Was contact made?: Yes If yes, spoke with:: RUSTAM Time called:: 15:33 07/05/17 11:29 Consult to Physician [CONS] Routine Consulting Provider: BRANT CHRISTOPHER Reason For Exam: vaginal bleeding Place consult to:: APPLICATION LEAD/DR. CHRISTOPHER Notified:: DR. CHRISTOPHER Phone number called:: [phone] Was contact made?: Yes If yes, spoke with:: Time called:: 17:09 Primary care physician: COOLER MAN Hospitalization Reason for admission: suicidal ideation/generalized weakness and fatigue Condition: Stable Pertinent studies: EGD; normal study, no source of bleeding identified, and deficiency anemia, follow APPLICATION LEAD Colonoscopy; normal study Procedures: 2 units PRBC transfusion Hospital course: 61-year-old morbidly obese female patient with history of bipolar schizophrenia hypertension noncompliant with medications was brought to the emergency room with suicidal ideation generalized weakness and shortness of breath Presentation was initially evaluated noted to have severe anemia with hemoglobin of 7.1 And heme-positive stools and menorrhagia Patient was admitted to the hospital Symptomatically managed, received 2 units of PRBC Subsequently evaluated by GI; had colonoscopy negative for bleeding, EGD negative for bleeding APPLICATION LEAD has evaluated the patient, advised to follow outpatient for further evaluation and management . Patient's symptoms significantly improved Today she is comfortable no new complaints Cleared medically for discharge and transfer to inpatient psych facility At the time of DC and transfer patient was hemodynamically and clinically stable Smoking cessation counseling done strongly advised to quit tobacco use Discharge diagnosis; --Symptomatic anemia; status post 2 PRBC transfusion --Heme positive stool; negative EGD and colonoscopy --History of menorrhagia, resolved; outpatient follow-up APPLICATION LEAD -- Suicidal ideation; 1013; transfer to inpatient psych facility for further evaluation --History of schizophrenia; per psychiatric --Morbid obesity; BMI 57, counseling done, dietary modification and exercise as tolerated and weight reduction continue 1013 status, Medically stable for discharge and transfer to inpatient psych facility Disposition: DC/TX-65 PSY HOSP/PSY UNIT Time spent for discharge: 32 min Core Measure Documentation - Palliative Care Palliative Care/ Comfort Measures: Not Applicable - Core Measures Any of the following diagnoses?: none Exam - Constitutional Vitals: Temp Pulse Resp BP Pulse Ox 97.9 F 74 18 131/62 99 07/06/17 19:37 07/06/17 22:32 07/06/17 19:37 07/06/17 22:32 07/06/17 22:32 General appearance: Present: no acute distress, well-nourished - EENT Eyes: Present: PERRL, EOM intact - Neck Neck: Present: supple, normal ROM - Respiratory Respiratory effort: normal Respiratory: bilateral: diminished, negative: rales, rhonchi, wheezing - Cardiovascular Rhythm: regular Heart Sounds: Present: S1 & S2 - Extremities Extremities: no ischemia, No edema - Abdominal General gastrointestinal: Present: soft, non-tender, non-distended, normal bowel sounds - Integumentary Integumentary: Present: clear, warm - Musculoskeletal Musculoskeletal: strength equal bilaterally - Psychiatric Psychiatric: appropriate mood/affect, cooperative - Neurologic Neurologic: CNII-XII intact, moves all extremities Plan Activity: no restrictions, other (1013) Diet: regular Special Instructions: smoking cessation Additional Instructions: transfer to inpatient psych today. Medically stable. Outpatient APPLICATION LEAD evaluation after discharge Follow up with: PRIMARY CAREMD [Primary Care Provider] - 7 Days
[2017-07-07] MEDS: HALDOL PO SCH (10:21)
[2017-07-07] MEDS: COGENTIN PO SCH (10:21)
[2017-07-07 18:10] VITALS: BP 110/69
== END 2017-07-07 21:45 | DRG 812 ==
LOC: ED 23:15 → 3A 07-05 04:37
PROVIDERS: ADMIT Internal Medicine; ATTEND Internal Medicine
PROC: 30233N1 Transfusion of Nonautologous Red Blood Cells into Peripheral Vein, Percutaneous Approach (ICD-10-PCS; 2017-07-05)
PROC: 3E0234Z Introduction of Serum, Toxoid and Vaccine into Muscle, Percutaneous Approach (ICD-10-PCS; 2017-07-05)
PROC: 0DJD8ZZ Inspection of Lower Intestinal Tract, Via Natural or Artificial Opening Endoscopic (ICD-10-PCS; principal; 2017-07-06)
PROC: 0DJ08ZZ Inspection of Upper Intestinal Tract, Via Natural or Artificial Opening Endoscopic (ICD-10-PCS; 2017-07-06)
DX: D50.9 Iron deficiency anemia, unspecified (principal); N93.9 Abnormal uterine and vaginal bleeding, unspecified; R45.851 Suicidal ideations; Z68.43 Body mass index [BMI] 50.0-59.9, adult; F20.9 Schizophrenia, unspecified; E66.01 Morbid (severe) obesity due to excess calories; I10 Essential (primary) hypertension; F31.9 Bipolar disorder, unspecified; G89.29 Other chronic pain; J45.909 Unspecified asthma, uncomplicated; Z91.19 Patient's noncompliance with other medical treatment and regimen; Z71.3 Dietary counseling and surveillance; Z23 Encounter for immunization
CPT/HCPCS: 36415; 80048; 80164; 80307; 80320; 81001; 82271; 83550; 84075; 84450; 84460; 84703; 85007; 85025; 85027; 85610; 86850; 86900; 86901; 86920; 90686; 93005; 93010; 99285; G0480; J2704; J7030; J7040; P9016

== ENCOUNTER 2018-04-17 13:39 | Emergency (ER) | payer MEDICARE ==
[2018-04-17 14:01] VITALS: BP 133/96
[2018-04-17 15:10] LABS: BUN/Creatinine Ratio 12; Blood Urea Nitrogen 7 mg/dL (7-17); Calcium 9.1 mg/dL (8.4-10.2); Hemolysis Index 0
[2018-04-17 15:21] LABS: Mean Corpuscular HGB Conc 28 % (30-34); Platelet Count 568 K/mm3 (140-440); Red Blood Count 5.32 M/mm3 (3.65-5.03)
[2018-04-17 15:24] LABS: Hematocrit 28.3 % (30.3-42.9); Mean Corpuscular Hemoglobin 15 pg (28-32); Mean Corpuscular Volume 53 fl (79-97); Red Cell Distribution Width 24.2 % (13.2-15.2)
[2018-04-17 16:15] LABS: Total Cells Counted 100
[2018-04-17 16:16] LABS: Basophils % (Manual) 0 % (0.0-1.8); Hypochromasia 3+
[2018-04-17 16:17] LABS: Schistocytes Few; Target Cells Few; Tear Drop Cells 1+
[2018-04-17 16:18] LABS: Platelet Estimate Appears Increased
== END 2018-04-17 18:00 | disposition left against medical advice (07) ==
LOC: ED 13:39
DX: R00.2 Palpitations (principal); Z53.21 Procedure and treatment not carried out due to patient leaving prior to being seen by health care provider
CPT/HCPCS: 36415; 80048; 85007; 85025; 93005; 93010; G0480; 80320

== ENCOUNTER 2018-11-07 11:50 | Emergency (ER) | payer MEDICARE ==
--- NOTE | 2018-11-07 12:48 | Emergency Department Report ---
Blank Doc - Documentation Documentation: This is a 43-year-old female that presents with left knee and thigh pain s/p f all. Denies any other injuries or complaints. This initial assessment diagnostic orders/clinical plan/treatment(s) is/are subject to change based on patient's health status, clinical progression and re- assessment by fellow clinical providers in the ED. Further treatment and workup at subsequent clinical providers discretion. Patient/guardians urged not to elope from ED s their condition may be serious if not clinically assessed and managed. Initial orders include: 1-patient sent to [facility] for further evaluation and treatment. 2- xray
--- NOTE | 2018-11-07 16:09 | Emergency Department Report ---
ED Extremity Problem HPI - General Chief complaint: Extremity Problem,Nontraumatic Stated complaint: (L) LEG PAIN Time Seen by Provider: 11/07/18 12:46 Source: patient Mode of arrival: Ambulatory Limitations: No Limitations - History of Present Illness Initial comments: 43-year-old female presents to ED with left knee pain. Patient states she tripped and fell in the driveway 3 days ago, landed on her stomach. Patient states has been unable to bear weight on her left leg since. MD Complaint: extremity pain -: days(s) (3) Location: left, knee Radiation: none Severity scale (0 -10): 8 Quality: aching Consistency: intermittent Improves with: immobilization Worsens with: weight bearing Associated Symptoms: denies other symptoms - Related Data Home Medications Medication Instructions Recorded Confirmed Last Taken QUEtiapine [SEROquel] 300 mg PO QHS 06/15/13 02/17/18 07/01/13 11:00 1 tablet traZODone [Desyrel] 50 mg PO QHS 06/15/13 02/17/18 07/01/13 10:00 1 tablet FLUoxetine [PROzac] 20 mg PO QDAY 07/01/13 02/17/18 07/01/13 10:00 1 tablet Previous Rx's Medication Instructions Recorded Last Taken Type Benztropine [Cogentin] 1 mg PO DAILY #30 tab 01/01/14 Unknown Rx Divalproex ER [Depakote ER] 1,500 mg PO QHS #90 tablet 01/01/14 Unknown Rx Haloperidol [Haldol] 5 mg PO QHS #30 tablet 01/01/14 Unknown Rx Sertraline [Zoloft] 100 mg PO QAM #30 tablet 01/01/14 Unknown Rx Naproxen [Naprosyn] 500 mg PO BID #20 tablet 11/07/18 Unknown Rx traMADol [Ultram] 50 mg PO Q6HR PRN #7 tablet 11/07/18 Unknown Rx Allergies Allergy/AdvReac Type Severity Reaction Status Date / Time No Known Allergies Allergy Verified 04/18/15 14:55 ED Review of Systems ROS: Stated complaint: (L) LEG PAIN Other details as noted in HPI Comment: All other systems reviewed and negative Musculoskeletal: as per HPI Neurological: denies: numbness, paresthesias ED Past Medical Hx - Past Medical History Previous Medical History?: Yes Hx Hypertension: Yes Hx Congestive Heart Failure: No Hx Diabetes: No Hx Seizures: Yes Hx Psychiatric Treatment: Yes (BIPOLAR, Schizophrenia) Hx Asthma: No Hx COPD: No Additional medical history: Bipolar, Schizophrenia, Chronic pain - Social History Smoking Status: Never Smoker Substance Use Type: None - Medications Home Medications: Home Medications Medication Instructions Recorded Confirmed Last Taken Type QUEtiapine [SEROquel] 300 mg PO QHS 06/15/13 02/17/18 07/01/13 11:00 History 1 tablet traZODone [Desyrel] 50 mg PO QHS 06/15/13 02/17/18 07/01/13 10:00 History 1 tablet FLUoxetine [PROzac] 20 mg PO QDAY 07/01/13 02/17/18 07/01/13 10:00 History 1 tablet Benztropine [Cogentin] 1 mg PO DAILY #30 tab 01/01/14 02/17/18 Unknown Rx Divalproex ER [Depakote ER] 1,500 mg PO QHS #90 tablet 01/01/14 02/17/18 Unknown Rx Haloperidol [Haldol] 5 mg PO QHS #30 tablet 01/01/14 02/17/18 Unknown Rx Sertraline [Zoloft] 100 mg PO QAM #30 tablet 01/01/14 02/17/18 Unknown Rx Naproxen [Naprosyn] 500 mg PO BID #20 tablet 11/07/18 Unknown Rx traMADol [Ultram] 50 mg PO Q6HR PRN #7 tablet 11/07/18 Unknown Rx ED Physical Exam - General Limitations: No Limitations General appearance: alert, in no apparent distress, obese - Head Head exam: Present: atraumatic, normocephalic - Eye Eye exam: Present: normal appearance - ENT ENT exam: Present: mucous membranes moist - Neck Neck exam: Present: normal inspection - Respiratory Respiratory exam: Present: normal lung sounds bilaterally. Absent: respiratory distress - Cardiovascular Cardiovascular Exam: Present: regular rate, normal rhythm - GI/Abdominal GI/Abdominal exam: Present: soft. Absent: distended - Extremities Exam Extremities exam: Present: normal inspection, tenderness (left knee), other (unable to bear weight on left leg upon standing). Absent: full ROM (unable to fully extend secondary to pain) - Neurological Exam Neurological exam: Present: alert, oriented X3. Absent: motor sensory deficit - Psychiatric Psychiatric exam: Present: normal affect, normal mood - Skin Skin exam: Present: warm, dry, intact, normal color ED Course Vital Signs 11/07/18 12:47 Temperature 98.2 F Pulse Rate 88 Respiratory 20 Rate Blood Pressure 119/72 O2 Sat by Pulse 100 Oximetry ED Medical Decision Making - Radiology Data Radiology results: report reviewed, image reviewed - Differential Diagnosis fracture, sprain Critical care attestation.: If time is entered above; I have spent that time in minutes in the direct care of this critically ill patient, excluding procedure time. ED Disposition Clinical Impression: Left knee sprain Disposition: - TO HOME OR SELFCARE Is pt being admited?: No Condition: Stable Instructions: Knee Sprain (ED) Prescriptions: Naproxen [Naprosyn] 500 mg PO BID #20 tablet traMADol [Ultram] 50 mg PO Q6HR PRN #7 tablet PRN Reason: Pain Referrals: YURI ALVARES MD [Staff Physician] - 3-5 Days Time of Disposition: 16:48
--- NOTE | 2018-11-07 16:40 | XRay Report ---
PROCEDURE: XR KNEE 3V LT TECHNIQUE: AP, oblique, and lateral views of the left knee HISTORY: pain s/p fall with left knee pain COMPARISONS: None . FINDINGS: No acute fracture or dislocation is seen. The soft tissues are unremarkable with no evidence for supr apatellar joint effusion. Joint spaces are maintained and bony mineralization is normal. A small spur off the posterior inferior patella is seen. IMPRESSION: No acute abnormality of the left knee. This document is electronically signed by Lola Salguero MD., November 07 2018 04:38:55 PM ET
--- NOTE | 2018-11-07 16:44 | XRay Report ---
PROCEDURE: XR FEMUR 2+V LT TECHNIQUE: AP and lateral views of the left femur HISTORY: pain s/p fall with left femur pain COMPARISONS: None . FINDINGS: There is no evidence for acute fracture or dislocation. No soft tissue swelling or radiopaque foreign bodies are seen. Bony mineralization is normal and joint spaces are maintained. IMPRESSION: No acute bony or soft tissue abnormality noted. This document is electronically signed by Lola Salguero MD., November 07 2018 04:42:52 PM ET
[2018-11-08 07:25] VITALS: BP 120/70
== END 2018-11-08 07:24 | disposition home or self-care (01) ==
LOC: ED 11:50
DX: S83.92XA Sprain of unspecified site of left knee, initial encounter (principal); I10 Essential (primary) hypertension; F31.9 Bipolar disorder, unspecified; F20.9 Schizophrenia, unspecified; W01.0XXA Fall on same level from slipping, tripping and stumbling without subsequent striking against object, initial encounter; Y93.89 Activity, other specified; Y92.89 Other specified places as the place of occurrence of the external cause; Y99.8 Other external cause status

== ENCOUNTER 2018-12-29 11:00 | Outpatient (CLI) | payer MEDICARE | END 2018-12-29 11:01 | disposition home or self-care (01) | LOC: SLR 11:00 | PROVIDERS: ATTEND Otolaryngology | DX: G47.33 Obstructive sleep apnea (adult) (pediatric) (principal); R40.0 Somnolence; R06.83 Snoring; E66.9 Obesity, unspecified; I10 Essential (primary) hypertension | CPT/HCPCS: 95810 ==

== ENCOUNTER 2019-04-28 16:55 | Emergency (ER) | payer MEDICARE ==
[2019-04-28 17:50] LABS: Basophils # (Auto) 0.1 K/mm3 (0.0-0.1); Basophils % (Auto) 1.2 % (0.0-1.8); Eosinophils # (Auto) 0.2 K/mm3 (0.0-0.4); Eosinophils % (Auto) 3.4 % (0.0-4.3); Hematocrit 32.8 % (30.3-42.9); Hemoglobin 10.2 gm/dl (10.1-14.3); Lymphocytes # (Auto) 2.1 K/mm3 (1.2-5.4); Lymphocytes % (Auto) 31.6 % (13.4-35.0); Mean Corpuscular HGB Conc 31 % (30-34); Monocytes # (Auto) 0.5 K/mm3 (0.0-0.8); Monocytes % (Auto) 7.3 % (0.0-7.3); Platelet Count 379 K/mm3 (140-440); Red Blood Count 4.83 M/mm3 (3.65-5.03)
[2019-04-28 17:55] LABS: Mean Corpuscular Volume 68 fl (79-97); Red Cell Distribution Width 21.3 % (13.2-15.2)
[2019-04-28 19:02] LABS: Alanine Aminotransferase 6 units/L (7-56); Albumin 4.1 g/dL (3.9-5); BUN/Creatinine Ratio 14; Blood Urea Nitrogen 10 mg/dL (7-17); Calcium 8.8 mg/dL (8.4-10.2); Hemolysis Index 5
--- NOTE | 2019-04-28 19:34 | Emergency Department Report ---
ED Psych HPI - General Chief Complaint: Psych Stated Complaint: MH EVAL Time Seen by Provider: 04/28/19 17:06 Source: patient Mode of arrival: Ambulatory - History of Present Illness Initial Comments: Patient is a 43-year-old female that presents emergency room with complaints of homicidal ideations, audio hallucinations, visual hallucinations. She states she is homicidal and would like to kill her kids. Patient states she is hearing voices. Patient since has been going on for worsening. Patient states all of her symptoms are becoming stronger. Patient states she has a long history of mental health. MD Complaint: other -: Sudden Associated Psychiatric Symptoms: homicidal ideation, racing thoughts, auditory hallucinations, visual hallucinations History of same: Yes Quality: constant Improves With: none Worsens With: none Associated Symptoms: denies other symptoms. denies: confusion, headache, shortness of breath, nausea, vomiting, syncope, insomnia - Related Data Home Medications Medication Instructions Recorded Confirmed Last Taken QUEtiapine [SEROquel] 300 mg PO QHS 06/15/13 02/17/18 07/01/13 11:00 1 tablet traZODone [Desyrel] 50 mg PO QHS 06/15/13 02/17/18 07/01/13 10:00 1 tablet FLUoxetine [PROzac] 20 mg PO QDAY 07/01/13 02/17/18 07/01/13 10:00 1 tablet Previous Rx's Medication Instructions Recorded Last Taken Type Benztropine [Cogentin] 1 mg PO DAILY #30 tab 01/01/14 Unknown Rx Divalproex ER [Depakote ER] 1,500 mg PO QHS #90 tablet 01/01/14 Unknown Rx Haloperidol [Haldol] 5 mg PO QHS #30 tablet 01/01/14 Unknown Rx Sertraline [Zoloft] 100 mg PO QAM #30 tablet 01/01/14 Unknown Rx Naproxen [Naprosyn] 500 mg PO BID #20 tablet 11/07/18 Unknown Rx traMADol [Ultram] 50 mg PO Q6HR PRN #7 tablet 11/07/18 Unknown Rx Allergies Allergy/AdvReac Type Severity Reaction Status Date / Time No Known Allergies Allergy Verified 04/18/15 14:55 ED Review of Systems ROS: Stated complaint: MH EVAL Other details as noted in HPI Constitutional: denies: chills, fever Eyes: denies: eye pain, eye discharge, vision change ENT: denies: ear pain, throat pain Respiratory: denies: cough, shortness of breath, wheezing Cardiovascular: denies: chest pain, palpitations Endocrine: no symptoms reported Gastrointestinal: denies: abdominal pain, nausea, diarrhea Genitourinary: denies: urgency, dysuria, discharge Musculoskeletal: denies: back pain, joint swelling, arthralgia Skin: denies: rash, lesions Neurological: denies: headache, weakness, paresthesias Psychiatric: auditory hallucinations, visual hallucinations, homicidal thoughts. denies: anxiety, depression Hematological/Lymphatic: denies: easy bleeding, easy bruising ED Past Medical Hx - Past Medical History Previous Medical History?: Yes Hx Hypertension: Yes Hx Congestive Heart Failure: No Hx Diabetes: No Hx Seizures: Yes Hx Psychiatric Treatment: Yes (BIPOLAR, Schizophrenia) Hx Asthma: No Hx COPD: No Additional medical history: Bipolar, Schizophrenia, Chronic pain - Surgical History Past Surgical History?: No - Family History Family history: no significant - Social History Smoking Status: Current Every Day Smoker Substance Use Type: None - Medications Home Medications: Home Medications Medication Instructions Recorded Confirmed Last Taken Type QUEtiapine [SEROquel] 300 mg PO QHS 06/15/13 02/17/18 07/01/13 11:00 History 1 tablet traZODone [Desyrel] 50 mg PO QHS 06/15/13 02/17/18 07/01/13 10:00 History 1 tablet FLUoxetine [PROzac] 20 mg PO QDAY 07/01/13 02/17/18 07/01/13 10:00 History 1 tablet Benztropine [Cogentin] 1 mg PO DAILY #30 tab 01/01/14 02/17/18 Unknown Rx Divalproex ER [Depakote ER] 1,500 mg PO QHS #90 tablet 01/01/14 02/17/18 Unknown Rx Haloperidol [Haldol] 5 mg PO QHS #30 tablet 01/01/14 02/17/18 Unknown Rx Sertraline [Zoloft] 100 mg PO QAM #30 tablet 01/01/14 02/17/18 Unknown Rx Naproxen [Naprosyn] 500 mg PO BID #20 tablet 11/07/18 Unknown Rx traMADol [Ultram] 50 mg PO Q6HR PRN #7 tablet 11/07/18 Unknown Rx ED Physical Exam - General Limitations: No Limitations General appearance: alert, in no apparent distress - Head Head exam: Present: atraumatic, normocephalic - Eye Eye exam: Present: normal appearance, PERRL Pupils: Present: normal accommodation - ENT ENT exam: Present: mucous membranes moist - Neck Neck exam: Present: normal inspection - Respiratory Respiratory exam: Present: normal lung sounds bilaterally. Absent: respiratory distress - Cardiovascular Cardiovascular Exam: Present: regular rate, normal rhythm. Absent: systolic murmur, diastolic murmur, rubs, gallop - GI/Abdominal GI/Abdominal exam: Present: soft, normal bowel sounds - Extremities Exam Extremities exam: Present: normal inspection - Back Exam Back exam: Present: normal inspection - Neurological Exam Neurological exam: Present: alert, oriented X3 - Psychiatric Psychiatric exam: Present: depressed, flat affect, homicidal ideation - Skin Skin exam: Present: warm, dry, intact, normal color. Absent: rash ED Course Vital Signs 04/28/19 20:00 Temperature 97.5 F L Pulse Rate 71 Respiratory 16 Rate Blood Pressure 113/59 [Left] O2 Sat by Pulse 95 Oximetry - Reevaluation(s) Reevaluation #1: Initial evaluation done and patient placed on a 1013. 04/28/19 19:34 Reevaluation #2: Patient is medically clear. I discussed all results with patient. Patient will remain in the ER on a 1013 until accepted in to appropriate psychiatric facility. 04/28/19 23:30 ED Medical Decision Making - Lab Data Result diagrams: 04/28/19 17:15 04/28/19 17:15 - Medical Decision Making Patient is a 43-year-old female that presents emergency room with complaints of homicidal ideation with the plan. Patient also complains of audiovisual hallucinations. Patient has a long mental history. Patient placed on a 1013. Patient had labs done and they're unremarkable. Patient is medically cleared. Patient will remain in the ER until accepted to appropriate psychiatric facilit y. - Differential Diagnosis homicidal ideations. Acute psychosis. Critical care attestation.: If time is entered above; I have spent that time in minutes in the direct care of this critically ill patient, excluding procedure time. ED Disposition Clinical Impression: Auditory hallucinations, Homicidal ideation Psychosis Qualifiers: Psychosis type: unspecified psychosis type Qualified Code(s): F29 - Unspecified psychosis not due to a substance or known physiological condition Is pt being admited?: No Does the pt Need Aspirin: No Condition: Stable Additional Instructions: pt is medically cleared Referrals: BETI BREWER MD [Primary Care Provider] - 3-5 Days Time of Disposition: 23:32
[2019-04-28 22:47] LABS: Amphetamine Screen,Urine PRESUMPTIVE NEGATIVE; Benzodiazepines Screen,Urine PRESUMPTIVE NEGATIVE; Cannabinoid Screen,Urine PRESUMPTIVE NEGATIVE; Cocaine Screen,Urine PRESUMPTIVE NEGATIVE; Methadone Screen,Urine PRESUMPTIVE NEGATIVE; Opiate Screen,Urine PRESUMPTIVE NEGATIVE
[2019-04-28 23:10] LABS: Bacteria,Urine 1+ /HPF (Negative); Bilirubin,Urine NEG (Negative); Blood,Urine NEG (Negative); Color,Urine Yellow (Yellow); Mucus,Urine FEW /HPF; Protein,Urine <15 mg/dL mg/dL (Negative)
[2019-04-29 07:53] VITALS: BP 114/66
== END 2019-04-29 09:15 ==
LOC: ED 16:55 → EEVIPCON 16:55 → ED 04-29 09:15
DX: F29 Unspecified psychosis not due to a substance or known physiological condition (principal); I10 Essential (primary) hypertension; F31.9 Bipolar disorder, unspecified; F20.9 Schizophrenia, unspecified; F17.200 Nicotine dependence, unspecified, uncomplicated; Z79.899 Other long term (current) drug therapy
CPT/HCPCS: 36415; 80053; 80307; 80320; 81001; 84703; 85025; G0480

== ENCOUNTER 2020-12-13 11:30 | Emergency (ER) | payer MEDICARE ==
--- NOTE | 2020-12-13 13:41 | Event Note ---
ED Screening Note Date of service: 12/13/20 Time: 13:39 ED Screening Note: Patient presents to the ER requesting inpatient detox. Patient has a history of cocaine abuse, marijuana abuse, alcohol abuse and has also been taking her mom's prescription opioid medication. She is requesting detox. She denies any HI or SI. She denies any hallucinations. Has a past medical history of schizophrenia and bipolar. She states that she has been taking her psych meds. This initial assessment/diagnostic orders/clinical plan/treatment(s) is/are subject to change based on patients health status, clinical progression and re- assessment by fellow clinical providers in the ED. Further treatment and workup at subsequent clinical providers discretion. Patient/guardian urged not to elope from the ED as their condition may be serious if not clinically assessed and managed. Initial orders include: Psych order set
[2020-12-13 14:27] LABS: Basophils % (Auto) 0.6 % (0.0-1.8); Eosinophils # (Auto) 0.3 K/mm3 (0.0-0.4); Eosinophils % (Auto) 3.3 % (0.0-4.3); Hematocrit 30.8 % (30.3-42.9); Hemoglobin 9.5 gm/dl (10.1-14.3); Lymphocytes # (Auto) 2.2 K/mm3 (1.2-5.4); Lymphocytes % (Auto) 28.2 % (13.4-35.0); Mean Corpuscular HGB Conc 31 % (30-34); Monocytes # (Auto) 0.4 K/mm3 (0.0-0.8); Platelet Count 472 K/mm3 (140-440); Red Blood Count 4.98 M/mm3 (3.65-5.03)
[2020-12-13 14:28] LABS: Mean Corpuscular Volume 62 fl (79-97); Red Cell Distribution Width 21.9 % (13.2-15.2)
[2020-12-13 14:50] LABS: Alanine Aminotransferase 9 units/L (7-56); Albumin 3.7 g/dL (3.9-5); Blood Urea Nitrogen 5 mg/dL (7-17); Calcium 8.3 mg/dL (8.4-10.2); Hemolysis Index 0
[2020-12-13 14:51] LABS: BUN/Creatinine Ratio 7
[2020-12-13 15:07] LABS: Bacteria,Urine 1+ /HPF (Negative); Bilirubin,Urine NEG (Negative); Blood,Urine NEG (Negative); Color,Urine Amber (Yellow); Mucus,Urine 3+ /HPF
[2020-12-13 15:08] LABS: HCG Qualitative,Urine Negative (Negative)
[2020-12-13 15:13] LABS: Benzodiazepines Screen,Urine Negative; Methadone Screen,Urine Negative; Opiate Screen,Urine Negative
[2020-12-13 15:37] LABS: Amphetamine Screen,Urine Positive; Cannabinoid Screen,Urine Positive; Cocaine Screen,Urine Positive
[2020-12-13 16:55] VITALS: BP 133/70
== END 2020-12-13 17:47 ==
LOC: ED 11:30
DX: F20.89 Other schizophrenia (principal); Z53.21 Procedure and treatment not carried out due to patient leaving prior to being seen by health care provider
CPT/HCPCS: 36415; 80053; 80307; 80320; 81001; 81025; 84703; 85025; G0480

== ENCOUNTER 2021-09-21 22:11 | Emergency (ER) | payer MEDICARE ==
[2021-09-21] MEDS ORDERED: LORazepam 2 MG/ML VIAL IM PRN (23:02)
[2021-09-21] MEDS ORDERED: HALOPERIDOL LACTATE 5 MG/1 ML INJ IM PRN (23:02)
--- NOTE | 2021-09-21 23:02 | Emergency Department Report ---
ED General Adult HPI - General Chief complaint: Overdose Stated complaint: OVERDOSE Time Seen by Provider: 09/21/21 22:52 Source: patient, EMS ( EMS documentation not available at time of chart dictation ), RN notes reviewed, old records reviewed Mode of arrival: Stretcher Limitations: Other (Patient is psychotic and disorganized and a poor historian) - History of Present Illness Initial comments: The patient was evaluated in the emergency department for symptoms described in the history of present illness. He/she was evaluated in the context of the global COVID-19 pandemic, which necessitated consideration that the patient might be at risk for infection with the virus that causes COVID-19. Institutional protocols and algorithms that pertain to the evaluation of patients at risk for COVID-19 are in a state of rapid change based on informatio n released by regulatory bodies including the CDC and federal and state organizations. These policies and algorithms were followed during the patient's care in the emergency department. Please note that these policies, procedures and recommendations changed on a rapid basis. The patient is a 45-year-old female with a history of psychiatric disease, and obesity, with a body mass index of 47. She is brought to the hospital by emergency medical services with complaints of ingestion of trazodone. Patient reportedly took 900 mg of trazodone. She thinks she took this more than 1 hour prior to ER presentation. She tells me that she took the trazodone because she is behind on taking her medicine, and "wanted to catch up." The patient cannot answer why she is not taking her medications on a scheduled basis. She further endorses multiple repeat overdoses over the past few days, including haloperidol. The patient is not able to specifically answer why she is not taking her medicines on a scheduled basis, and why she is deciding to overdose. The patient denies physical pain. -: This evening - Related Data Home Medications Medication Instructions Recorded Confirmed Last Taken QUEtiapine [SEROquel] 300 mg PO QHS 06/15/13 02/17/18 07/01/13 11:00 1 tablet traZODone [Desyrel] 50 mg PO QHS 06/15/13 02/17/18 07/01/13 10:00 1 tablet FLUoxetine [PROzac] 20 mg PO QDAY 07/01/13 02/17/18 07/01/13 10:00 1 tablet Previous Rx's Medication Instructions Recorded Last Taken Type Benztropine [Cogentin] 1 mg PO DAILY #30 tab 01/01/14 Unknown Rx Divalproex ER [Depakote ER] 1,500 mg PO QHS #90 tablet 01/01/14 Unknown Rx Sertraline [Zoloft] 100 mg PO QAM #30 tablet 01/01/14 Unknown Rx haloperidoL [Haldol] 5 mg PO QHS #30 tablet 01/01/14 Unknown Rx Albuterol Mdi (or & Nicu Only) 2 puff IH QID PRN #8.5 gram 03/05/20 Unknown Rx [ProAir HFA Inhaler] Prednisone [predniSONE 10 mg 10 mg PO .TAPER #1 tab.ds.pk 03/05/20 Unknown Rx (6-Day Pack, 21 Tabs)] Allergies Allergy/AdvReac Type Severity Reaction Status Date / Time No Known Allergies Allergy Verified 09/21/21 22:21 ED Review of Systems ROS: Stated complaint: OVERDOSE Other details as noted in HPI Constitutional: denies: fever Respiratory: denies: cough Cardiovascular: denies: chest pain Gastrointestinal: denies: abdominal pain Psychiatric: denies: homicidal thoughts, suicidal thoughts ED Past Medical Hx - Past Medical History Hx Hypertension: Yes Hx Congestive Heart Failure: No Hx Diabetes: No Hx Seizures: Yes Hx Psychiatric Treatment: Yes (BIPOLAR, Schizophrenia) Hx Asthma: No Hx COPD: No Additional medical history: Bipolar, Schizophrenia, Chronic pain - Social History Smoking Status: Current Every Day Smoker - Medications Home Medications: Home Medications Medication Instructions Recorded Confirmed Last Taken Type QUEtiapine [SEROquel] 300 mg PO QHS 06/15/13 02/17/18 07/01/13 11:00 History 1 tablet traZODone [Desyrel] 50 mg PO QHS 06/15/13 02/17/18 07/01/13 10:00 History 1 tablet FLUoxetine [PROzac] 20 mg PO QDAY 07/01/13 02/17/18 07/01/13 10:00 History 1 tablet Benztropine [Cogentin] 1 mg PO DAILY #30 tab 01/01/14 02/17/18 Unknown Rx Divalproex ER [Depakote ER] 1,500 mg PO QHS #90 tablet 01/01/14 02/17/18 Unknown Rx Sertraline [Zoloft] 100 mg PO QAM #30 tablet 01/01/14 02/17/18 Unknown Rx haloperidoL [Haldol] 5 mg PO QHS #30 tablet 01/01/14 02/17/18 Unknown Rx Albuterol Mdi (or & Nicu Only) 2 puff IH QID PRN #8.5 gram 03/05/20 Unknown Rx [ProAir HFA Inhaler] Prednisone [predniSONE 10 mg 10 mg PO .TAPER #1 tab.ds.pk 03/05/20 Unknown Rx (6-Day Pack, 21 Tabs)] ED Physical Exam - General Limitations: Other (Patient is disorganized and a poor historian) General appearance: obese - Head Head exam: Present: atraumatic, normocephalic - Eye Eye exam: Present: normal appearance, EOMI. Absent: nystagmus - ENT ENT exam: Present: normal exam, normal orophraynx, mucous membranes moist, normal external ear exam - Neck Neck exam: Present: normal inspection, full ROM. Absent: tenderness, meningismus - Respiratory Respiratory exam: Present: normal lung sounds bilaterally. Absent: respiratory distress, wheezes, rales, rhonchi, stridor, decreased breath sounds - Cardiovascular Cardiovascular Exam: Present: normal rhythm, tachycardia, normal heart sounds. Absent: bradycardia, irregular rhythm, systolic murmur, diastolic murmur, rubs, gallop - GI/Abdominal GI/Abdominal exam: Present: soft. Absent: distended, tenderness, guarding, rebound, rigid, pulsatile mass - Extremities Exam Extremities exam: Present: normal inspection, full ROM, other (2+ pulses noted in the bilateral upper and lower extremities. There is no palpable cord. negative Homans sign. Muscular compartments are soft. The pelvis is stable.). Absent: pedal edema, calf tenderness - Back Exam Back exam: Present: normal inspection, full ROM. Absent: tenderness, CVA tenderness (R), CVA tenderness (L), paraspinal tenderness, vertebral tenderness - Neurological Exam Neurological exam: Present: other (No facial droop. Tongue midline. Extraocular movements intact bilaterally. Facial sensation intact to light touch in V1, V2, V3 distribution bilaterally. 5 and a 5 strength in 4 extremities. Sensation intact to light touch in 4 extremities.) - Psychiatric Psychiatric exam: Present: flat affect - Skin Skin exam: Present: warm, dry, intact, normal color. Absent: rash ED Course Vital Signs 09/21/21 09/22/21 22:21 04:23 Temperature 98.6 F Pulse Rate 100 H 90 Respiratory 16 19 Rate Blood Pressure 121/60 107/55 [Left] O2 Sat by Pulse 98 94 Oximetry - Reevaluation(s) Reevaluation #1: 09/21/21 23:14 Differential diagnosis, including but not limited to: Psychosis, overdose, medical clearance for psychiatric placement, disorganized behavior Assessment and plan: 45-year-old female, who has overdosed on trazodone, for unclear reasons, who appears to be disorganized, and does not have decision- making capacity at this time. Have recommended laboratory studies EKG, and placement of cardiac nurse specialist. Patient is refusing these interventions at this time. The patient is disorganized and not of sound mind in my opinion, and does not have decision-making capacity. Given history of overdose for unclear reasons, disorganization, lack of decision-making capacity, patient is placed on a 1013. Patient to be medicated with haloperidol and Ativan for acquisition of time sensitive diagnostics. We will also obtain EKG. The patient will be placed on a cardiac nurse specialist. I have filled out and ordered at 1013 for this patient. Patient not a candidate for charcoal as she presents more than 60 minutes after initial ingestion. We will discussed with the Poison Control Center once her initial diagnostic studies have resulted 09/22/21 02:30 Laboratory studies are essentially unremarkable. EKG today appears to be unchanged when compared to prior EKG. Contacted Susan at the [place] poison control center. Discussed the patient's history, physical, laboratory studies and EKG findings. Supportive care and observation for 6 hours recommended. Raeann is in agreement that charcoal not indicated given timeframe. Patient resting comfortably in stretcher at this time, and she is in no acute distress 09/22/21 04:41 Vital signs stable and unremarkable. Laboratory studies unremarkable. Patient resting comfortably in stretcher and in no acute distress. At this point in time, this patient does not appear to have an immediate medical contraindication to psychiatric admission, evaluation, consultation and placement. ED Medical Decision Making - Lab Data Result diagrams: 09/22/21 00:06 09/22/21 00:06 Vital Signs 09/21/21 22:21 Temperature 98.6 F Pulse Rate 100 H Respiratory 16 Rate Blood Pressure 121/60 [Left] O2 Sat by Pulse 98 Oximetry Lab Results 09/21/21 09/21/21 09/22/21 Range/Units Unknown Unknown 00:06 WBC (4.5-11.0) K/mm3 RBC (3.65-5.03) M/mm3 Hgb (10.1-14.3) gm/dl Hct (30.3-42.9) % MCV (79-97) fl MCH (28-32) pg MCHC (30-34) % RDW (13.2-15.2) % Plt Count (140-440) K/mm3 Sodium 136 L (137-145) mmol/L Potassium 3.8 (3.6-5.0) mmol/L Chloride 101.5 (98-107) mmol/L Carbon Dioxide 24 (22-30) mmol/L Anion Gap 14 mmol/L BUN 7 (7-17) mg/dL Creatinine 0.7 (0.6-1.2) mg/dL Estimated GFR > 60 ml/min BUN/Creatinine Ratio 10 % Glucose 110 H (65-100) mg/dL Calcium 8.4 (8.4-10.2) mg/dL Magnesium (1.7-2.3) mg/dL Total Bilirubin 0.70 (0.1-1.2) mg/dL AST 13 (5-40) units/L ALT 9 (7-56) units/L Alkaline Phosphatase 139 H (35-129) units/L Total Protein 7.9 (6.3-8.2) g/dL Albumin 3.8 L (3.9-5) g/dL Albumin/Globulin Ratio 0.9 % TSH (0.270-4.200) mlU/mL HCG, Qual (Negative) Urine Color Yellow (Yellow) Urine Turbidity Clear (Clear) Urine pH 5.0 (5.0-7.0) Ur Specific [place] 1.011 (1.003-1.030) Urine Protein <15 mg/dl (Negative) mg/dL Urine Glucose (UA) Neg (Negative) mg/dL Urine Ketones Neg (Negative) mg/dL Urine Blood Neg (Negative) Urine Nitrite Neg (Negative) Urine Bilirubin Neg (Negative) Urine Urobilinogen 2.0 (<2.0) mg/dL Ur Leukocyte Esterase Neg (Negative) Urine WBC (Auto) 1.0 (0.0-6.0) /HPF Urine RBC (Auto) < 1.0 (0.0-6.0) /HPF U Epithel Cells (Auto) 1.0 (0-13.0) /HPF Urine Mucus Few /HPF Salicylates (2.8-20.0) mg/dL Urine Opiates Screen Negative Urine Methadone Screen Negative Acetaminophen (10.0-30.0) ug/mL Ur Barbiturates Screen Negative Valproic Acid (50-100) ug/mL Ur Phencyclidine Scrn Negative U Benzodiazepines Scrn Negative [place] (0.0-1.2) mmol/L Urine Cocaine Screen Negative U Marijuana (THC) Screen Negative Plasma/Serum Alcohol (0-0.07) % 09/22/21 09/22/21 09/22/21 Range/Units 00:06 00:06 00:06 WBC (4.5-11.0) K/mm3 RBC (3.65-5.03) M/mm3 Hgb (10.1-14.3) gm/dl Hct (30.3-42.9) % MCV (79-97) fl MCH (28-32) pg MCHC (30-34) % RDW (13.2-15.2) % Plt Count (140-440) K/mm3 Sodium (137-145) mmol/L Potassium (3.6-5.0) mmol/L Chloride (98-107) mmol/L Carbon Dioxide (22-30) mmol/L Anion Gap mmol/L BUN (7-17) mg/dL Creatinine (0.6-1.2) mg/dL Estimated GFR ml/min BUN/Creatinine Ratio % Glucose (65-100) mg/dL Calcium (8.4-10.2) mg/dL Magnesium (1.7-2.3) mg/dL Total Bilirubin (0.1-1.2) mg/dL AST (5-40) units/L ALT (7-56) units/L Alkaline Phosphatase (35-129) units/L Total Protein (6.3-8.2) g/dL Albumin (3.9-5) g/dL Albumin/Globulin Ratio % TSH 1.880 (0.270-4.200) mlU/mL HCG, Qual (Negative) Urine Color (Yellow) Urine Turbidity (Clear) Urine pH (5.0-7.0) Ur Specific [place] (1.003-1.030) Urine Protein (Negative) mg/dL Urine Glucose (UA) (Negative) mg/dL Urine Ketones (Negative) mg/dL Urine Blood (Negative) Urine Nitrite (Negative) Urine Bilirubin (Negative) Urine Urobilinogen (<2.0) mg/dL Ur Leukocyte Esterase (Negative) Urine WBC (Auto) (0.0-6.0) /HPF Urine RBC (Auto) (0.0-6.0) /HPF U Epithel Cells (Auto) (0-13.0) /HPF Urine Mucus /HPF Salicylates < 0.3 L (2.8-20.0) mg/dL Urine Opiates Screen Urine Methadone Screen Acetaminophen 5.0 L (10.0-30.0) ug/mL Ur Barbiturates Screen Valproic Acid < 2.8 L (50-100) ug/mL Ur Phencyclidine Scrn U Benzodiazepines Scrn [place] 0.1 (0.0-1.2) mmol/L Urine Cocaine Screen U Marijuana (THC) Screen Plasma/Serum Alcohol (0-0.07) % 09/22/21 09/22/21 09/22/21 Range/Units 00:06 00:06 00:06 WBC 8.8 (4.5-11.0) K/mm3 RBC 4.77 (3.65-5.03) M/mm3 Hgb 9.2 L (10.1-14.3) gm/dl Hct 30.4 (30.3-42.9) % MCV 64 L (79-97) fl MCH 19 L (28-32) pg MCHC 30 (30-34) % RDW 20.3 H (13.2-15.2) % Plt Count 444 H (140-440) K/mm3 Sodium (137-145) mmol/L Potassium (3.6-5.0) mmol/L Chloride (98-107) mmol/L Carbon Dioxide (22-30) mmol/L Anion Gap mmol/L BUN (7-17) mg/dL Creatinine (0.6-1.2) mg/dL Estimated GFR ml/min BUN/Creatinine Ratio % Glucose (65-100) mg/dL Calcium (8.4-10.2) mg/dL Magnesium (1.7-2.3) mg/dL Total Bilirubin (0.1-1.2) mg/dL AST (5-40) units/L ALT (7-56) units/L Alkaline Phosphatase (35-129) units/L Total Protein (6.3-8.2) g/dL Albumin (3.9-5) g/dL Albumin/Globulin Ratio % TSH (0.270-4.200) mlU/mL HCG, Qual Negative (Negative) Urine Color (Yellow) Urine Turbidity (Clear) Urine pH (5.0-7.0) Ur Specific [place] (1.003-1.030) Urine Protein (Negative) mg/dL Urine Glucose (UA) (Negative) mg/dL Urine Ketones (Negative) mg/dL Urine Blood (Negative) Urine Nitrite (Negative) Urine Bilirubin (Negative) Urine Urobilinogen (<2.0) mg/dL Ur Leukocyte Esterase (Negative) Urine WBC (Auto) (0.0-6.0) /HPF Urine RBC (Auto) (0.0-6.0) /HPF U Epithel Cells (Auto) (0-13.0) /HPF Urine Mucus /HPF Salicylates (2.8-20.0) mg/dL Urine Opiates Screen Urine Methadone Screen Acetaminophen (10.0-30.0) ug/mL Ur Barbiturates Screen Valproic Acid (50-100) ug/mL Ur Phencyclidine Scrn U Benzodiazepines Scrn [place] (0.0-1.2) mmol/L Urine Cocaine Screen U Marijuana (THC) Screen Plasma/Serum Alcohol < 0.01 (0-0.07) % 09/22/21 Range/Units 00:06 WBC (4.5-11.0) K/mm3 RBC (3.65-5.03) M/mm3 Hgb (10.1-14.3) gm/dl Hct (30.3-42.9) % MCV (79-97) fl MCH (28-32) pg MCHC (30-34) % RDW (13.2-15.2) % Plt Count (140-440) K/mm3 Sodium (137-145) mmol/L Potassium (3.6-5.0) mmol/L Chloride (98-107) mmol/L Carbon Dioxide (22-30) mmol/L Anion Gap mmol/L BUN (7-17) mg/dL Creatinine (0.6-1.2) mg/dL Estimated GFR ml/min BUN/Creatinine Ratio % Glucose (65-100) mg/dL Calcium (8.4-10.2) mg/dL Magnesium 1.90 (1.7-2.3) mg/dL Total Bilirubin (0.1-1.2) mg/dL AST (5-40) units/L ALT (7-56) units/L Alkaline Phosphatase (35-129) units/L Total Protein (6.3-8.2) g/dL Albumin (3.9-5) g/dL Albumin/Globulin Ratio % TSH (0.270-4.200) mlU/mL HCG, Qual (Negative) Urine Color (Yellow) Urine Turbidity (Clear) Urine pH (5.0-7.0) Ur Specific [place] (1.003-1.030) Urine Protein (Negative) mg/dL Urine Glucose (UA) (Negative) mg/dL Urine Ketones (Negative) mg/dL Urine Blood (Negative) Urine Nitrite (Negative) Urine Bilirubin (Negative) Urine Urobilinogen (<2.0) mg/dL Ur Leukocyte Esterase (Negative) Urine WBC (Auto) (0.0-6.0) /HPF Urine RBC (Auto) (0.0-6.0) /HPF U Epithel Cells (Auto) (0-13.0) /HPF Urine Mucus /HPF Salicylates (2.8-20.0) mg/dL Urine Opiates Screen Urine Methadone Screen Acetaminophen (10.0-30.0) ug/mL Ur Barbiturates Screen Valproic Acid (50-100) ug/mL Ur Phencyclidine Scrn U Benzodiazepines Scrn [place] (0.0-1.2) mmol/L Urine Cocaine Screen U Marijuana (THC) Screen Plasma/Serum Alcohol (0-0.07) % Vital Signs 09/21/21 22:21 Temperature 98.6 F Pulse Rate 100 H Respiratory 16 Rate Blood Pressure 121/60 [Left] O2 Sat by Pulse 98 Oximetry Vital Signs 09/21/21 09/22/21 22:21 04:23 Temperature 98.6 F Pulse Rate 100 H 90 Respiratory 16 19 Rate Blood Pressure 121/60 107/55 [Left] O2 Sat by Pulse 98 94 Oximetry - EKG Data -: EKG Interpreted by Me EKG shows normal: sinus rhythm Rate: normal - EKG Data Interpretation: unchanged when compared t (2017) 09/22/21 02:25 The EKG is read at 01:12 am sinus rhythm, rate 94 bpm. Normal axis, QTC 4 7 6 ms. QRS 90 ms. QT 380 ms. Abnormal EKG. No STEMI. 09/22/21 02:29 Critical care attestation.: If time is entered above; I have spent that time in minutes in the direct care of this critically ill patient, excluding procedure time. ED Disposition Clinical Impression: Overdose, Obesity, Medical clearance for psychiatric admission Disposition: [address] [place] [address] Is pt being admited?: No Does the pt Need Aspirin: No Condition: Good Referrals: PRIMARY CARE, [Primary Care Provider] - 3-5 Days
[2021-09-22 00:44] LABS: Alanine Aminotransferase 9 units/L (7-56); Albumin 3.8 g/dL (3.9-5)
[2021-09-22 00:54] LABS: Blood Urea Nitrogen 7 mg/dL (7-17); Calcium 8.4 mg/dL (8.4-10.2); Hemolysis Index 0
[2021-09-22 00:58] LABS: Hematocrit 30.4 % (30.3-42.9); Hemoglobin 9.2 gm/dl (10.1-14.3); Mean Corpuscular HGB Conc 30 % (30-34); Platelet Count 444 K/mm3 (140-440); Red Blood Count 4.77 M/mm3 (3.65-5.03)
[2021-09-22 00:59] LABS: BUN/Creatinine Ratio 10
[2021-09-22 01:09] LABS: Mean Corpuscular Volume 64 fl (79-97); Red Cell Distribution Width 20.3 % (13.2-15.2)
[2021-09-22 02:05] LABS: Bilirubin,Urine NEG (Negative); Color,Urine Yellow (Yellow)
[2021-09-22 02:06] LABS: Blood,Urine NEG (Negative); Mucus,Urine FEW /HPF; Protein,Urine <15 mg/dL mg/dL (Negative)
[2021-09-22 02:15] LABS: Benzodiazepines Screen,Urine Negative; Cannabinoid Screen,Urine Negative; Cocaine Screen,Urine Negative; Methadone Screen,Urine Negative; Opiate Screen,Urine Negative
[2021-09-22 02:18] LABS: RBC,Urine < 1.0 /HPF (0.0-6.0)
[2021-09-22 03:10] LABS: Amphetamine Screen,Urine PRESUMPTIVE POSITIVE
--- NOTE | 2021-09-22 09:19 | Consultation ---
History of Present Illness - Reason for Consult Consult date: 09/22/21 Reason for consult: OD - History of Present Psychiatric Illness The patient was seen today. She is a 45y/o female who presented to the ER for overdose on Trazodone. The patient reportedly took 900mg of Trazodone and stated she was trying to catch up on it is why she took so much. During my evaluation of the patient, she tells a different story. She states she overdosed on 300mg of trazodone, but she states she is prescribed only 300mg. The patient says "they couldn't wake me up. I had thurman booed on myself." The patient denies a suicidal attempt, but when asking if she felt safe, she replied "no I don't feel safe." The patient was asked why didn't she feel safe at home, she says "I don't know. I feel disorganized right now." The patient denies ever doing this in the past, but ER note says she states she had repeated overdoses over last few days. But she states to me "this is my first time doing this." When asking the patient if she felt depressed, she replied "no I don't feel depressed, I feel other things like disoriented." She denies illicit drug use, alcohol or nicotine. She says she has a history of schizophrenia. The patient denies hallucinations. PAST PSYCHIATRIC HISTORY: Diagnoses: Schizophrenia Suicide attempts or Self-harm behavior: Denies Prior psychiatric hospitalizations: Yes Substance Abuse history: Denies Previous psychiatric medications tried: could not recall Outpatient treatment: Yes PAST MEDICAL HISTORY: unknown Family Psychiatric History: None reported or documented SOCIAL HISTORY Marital Status: Single Living Arrangements: With mom Employment Status: Unemployed Access to guns/weapons: Denies Education: History of Abuse:Denies Legal History: Denies REVIEW OF SYSTEMS Constitutional: Negative for weight loss ENT: Negative for stridor Respiratory: Negative for cough or hemoptysis All other systems reviewed and are negative MENTAL STATUS EXAMINATION General Appearance and Behavior: Age appropriate, good hygiene, wearing appropriate clothes. cooperative Cooperation: Cooperative Psychomotor Behavior: Psychomotor normal Mood: "disoriented" Affect and affective range: restricted Thought Process: circumstantial Thought Content: None Speech: Normal tone and pace Suicidal Ideation: Denies, possibly yes Homicidal Ideation: Denies Hallucinations: Denies Delusions: Denies Impulse Control: Impaired Insight and Judgment: Limited insight and fair judgment Memory: Limited Attention: distracted Orientation: a/o x 3 Assessment (1) Schizophernia Current Visit: Yes Status: Acute Treatment Plan [address] 250mg po BID Melatonin 5mg po qhs prn insomnia Vistaril 25mg po q6h prn anxiety Medical: per primary Disposition: Recommend acute psychiatric inpatient treatment Will follow. Thanks Case staffed with Dr. Dale Medications and Allergies Allergies Allergy/AdvReac Type Severity Reaction Status Date / Time No Known Allergies Allergy Verified 09/21/21 22:21 Home Medications Medication Instructions Recorded Confirmed Last Taken Type QUEtiapine [SEROquel] 300 mg PO QHS 06/15/13 02/17/18 07/01/13 11:00 History 1 tablet traZODone [Desyrel] 50 mg PO QHS 06/15/13 02/17/18 07/01/13 10:00 History 1 tablet FLUoxetine [PROzac] 20 mg PO QDAY 07/01/13 02/17/18 07/01/13 10:00 History 1 tablet Benztropine [Cogentin] 1 mg PO DAILY #30 tab 01/01/14 02/17/18 Unknown Rx Divalproex ER [Depakote ER] 1,500 mg PO QHS #90 tablet 01/01/14 02/17/18 Unknown Rx Sertraline [Zoloft] 100 mg PO QAM #30 tablet 01/01/14 02/17/18 Unknown Rx haloperidoL [Haldol] 5 mg PO QHS #30 tablet 01/01/14 02/17/18 Unknown Rx Albuterol Mdi (or & Nicu Only) 2 puff IH QID PRN #8.5 gram 03/05/20 Unknown Rx [ProAir HFA Inhaler] Prednisone [predniSONE 10 mg 10 mg PO .TAPER #1 tab.ds.pk 03/05/20 Unknown Rx (6-Day Pack, 21 Tabs)] Active Meds: Active Medications Haloperidol Lactate (Haloperidol Lactate 5 Mg/1 Ml Inj) 5 mg IM Q6HR PRN PRN Reason: Agitation Last Admin: 09/21/21 23:27 Dose: 5 mg Lorazepam (Lorazepam 2 Mg/Ml Vial) 2 mg IM Q4HR PRN PRN Reason: Agitation Last Admin: 09/21/21 23:26 Dose: 2 mg Mental Status Exam - Vital signs Last Vital Signs Temp 98.4 F 09/22/21 01:12 Pulse 101 H 09/22/21 07:33 Resp 19 09/22/21 07:33 BP 107/44 09/22/21 07:33 Pulse Ox 97 09/22/21 07:33 Results Result Diagrams: 09/22/21 00:06 09/22/21 00:06 Abnormal lab results 09/22/21 09/22/21 09/22/21 Range/Units 00:06 00:06 00:06 Hgb (10.1-14.3) gm/dl MCV (79-97) fl MCH (28-32) pg RDW (13.2-15.2) % Plt Count (140-440) K/mm3 Sodium 136 L (137-145) mmol/L Glucose 110 H (65-100) mg/dL Alkaline Phosphatase 139 H (35-129) units/L Albumin 3.8 L (3.9-5) g/dL Salicylates < 0.3 L (2.8-20.0) mg/dL Acetaminophen 5.0 L (10.0-30.0) ug/mL Valproic Acid < 2.8 L (50-100) ug/mL 09/22/21 Range/Units 00:06 Hgb 9.2 L (10.1-14.3) gm/dl MCV 64 L (79-97) fl MCH 19 L (28-32) pg RDW 20.3 H (13.2-15.2) % Plt Count 444 H (140-440) K/mm3 Sodium (137-145) mmol/L Glucose (65-100) mg/dL Alkaline Phosphatase (35-129) units/L Albumin (3.9-5) g/dL Salicylates (2.8-20.0) mg/dL Acetaminophen (10.0-30.0) ug/mL Valproic Acid (50-100) ug/mL All other labs normal.
[2021-09-22] MEDS ORDERED: hydrOXYzine PAMOATE 25 MG CAP PO PRN (09:30)
[2021-09-22] MEDS ORDERED: DIVALPROEX DR 250 MG TAB PO SCH (10:00)
--- NOTE | 2021-09-22 11:31 | Emergency Department Report ---
Blank Doc - Documentation Documentation: Patient is still suicidal. She had attempted an overdose. She has been medic ally cleared. We are awaiting psychiatric admission.
--- NOTE | 2021-09-22 11:43 | Electrocardiograph Report ---
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
[2021-09-22 20:42] VITALS: BP 131/54
[2021-09-22] MEDS ORDERED: MELATONIN 5 MG TAB PO PRN (21:00)
== END 2021-09-22 22:47 ==
LOC: ED 22:11
DX: T43.211A Poisoning by selective serotonin and norepinephrine reuptake inhibitors, accidental (unintentional), initial encounter (principal); Y92.89 Other specified places as the place of occurrence of the external cause; Z13.30 Encounter for screening examination for mental health and behavioral disorders, unspecified; I10 Essential (primary) hypertension; Z20.822 Contact with and (suspected) exposure to COVID-19
CPT/HCPCS: 36415; 80053; 80164; 80178; 80307; 81001; 83735; 84443; 84703; 85027; 93005; 93010; 96372; 99285; J1630; J2060; U0003; 80320; G0480

== ENCOUNTER → 2021-09-23 | Emergency (ER) | payer MEDICARE ==
--- NOTE | 2021-09-23 07:15 | Emergency Department Report ---
HPI - HPI HPI: [place] [id number] Patient is a 45-year-old female present with a chief complaint of cough. The patient was recently seen at the ED for overdose and placed on 1013. Patient was sent to [facility] however she was refused entry after during assessment she reported body aches and a nonproductive cough. Patient tested negative for Covid yesterday. Patient admits to cough for the past 3 days. Patient states she has been vaccinated against Covid receiving her second vaccination in the summer 2020. <STEPHANIE MCCAIN - Last Filed: 09/23/21 10:36> <DARREL TATUM - Last Filed: 09/23/21 20:41> - General Chief Complaint: Psych Time Seen by Provider: 09/23/21 07:02 ED Past Medical Hx - Past Medical History Hx Hypertension: Yes Hx Seizures: Yes Hx Psychiatric Treatment: Yes (BIPOLAR, Schizophrenia) Additional medical history: Bipolar, Schizophrenia, Chronic pain - Surgical History Past Surgical History?: No - Family History Family history: no significant - Social History Smoking Status: Unknown if ever smoked Substance Use Type: None <STEPHANIE MCCAIN - Last Filed: 09/23/21 10:36> <DARREL TATUM - Last Filed: 09/23/21 20:41> - Medications Home Medications: Home Medications Medication Instructions Recorded Confirmed Last Taken Type QUEtiapine [SEROquel] 300 mg PO QHS 06/15/13 02/17/18 07/01/13 11:00 History 1 tablet traZODone [Desyrel] 50 mg PO QHS 06/15/13 02/17/18 07/01/13 10:00 History 1 tablet FLUoxetine [PROzac] 20 mg PO QDAY 07/01/13 02/17/18 07/01/13 10:00 History 1 tablet Benztropine [Cogentin] 1 mg PO DAILY #30 tab 01/01/14 02/17/18 Unknown Rx Divalproex ER [Depakote ER] 1,500 mg PO QHS #90 tablet 01/01/14 02/17/18 Unknown Rx Sertraline [Zoloft] 100 mg PO QAM #30 tablet 01/01/14 02/17/18 Unknown Rx haloperidoL [Haldol] 5 mg PO QHS #30 tablet 01/01/14 02/17/18 Unknown Rx Albuterol Mdi (or & Nicu Only) 2 puff IH QID PRN #8.5 gram 03/05/20 Unknown Rx [ProAir HFA Inhaler] Prednisone [predniSONE 10 mg 10 mg PO .TAPER #1 tab.ds.pk 03/05/20 Unknown Rx (6-Day Pack, 21 Tabs)] ED Review of Systems ROS: Stated complaint: PT WENT TO [facility], REFUSED DUE TO S/S COVID PER RN Other details as noted in HPI Constitutional: no symptoms reported Eyes: denies: eye pain ENT: denies: throat pain Respiratory: cough Cardiovascular: denies: chest pain Endocrine: no symptoms reported Gastrointestinal: denies: abdominal pain Genitourinary: denies: dysuria Musculoskeletal: myalgia Neurological: denies: headache <STEPHANIE MCCAIN - Last Filed: 09/23/21 10:36> ROS: Stated complaint: PT WENT TO [facility], REFUSED DUE TO S/S COVID PER RN Other details as noted in HPI <DARREL TATUM - Last Filed: 09/23/21 20:41> Physical Exam - Physical Exam Physical Exam: GENERAL: The patient is well-developed well-nourished female lying on stretcher not appearing to be in acute. [] HEENT: Normocephalic. Atraumatic. Extraocular motions are intact. Patient has moist mucous membranes. NECK: Supple. Trachea midline CHEST/LUNGS: Clear to auscultation. There is no respiratory distress noted. HEART/CARDIOVASCULAR: Regular. There is no tachycardia. There is no gallop rub or murmur. ABDOMEN: Patient has normal bowel sounds. There is no abdominal distention. SKIN: There is no rash. There is no edema. There is no diaphoresis. NEURO: The patient is awake, alert, and oriented. The patient is cooperative. The patient has no focal neurologic deficits. The patient has normal speech. GCS 15 MUSCULOSKELETAL: There is no evidence of acute injury. <STEPHANIE MCCAIN - Last Filed: 09/23/21 10:36> - Physical Exam Vital Signs: Vital Signs 09/23/21 09/23/21 09/23/21 09:52 12:37 12:52 Temperature 96.7 F L 97.3 F L Pulse Rate 84 66 Respiratory 17 16 Rate Blood Pressure 134/84 137/72 [Left] O2 Sat by Pulse 100 100 96 Oximetry <DARREL TATUM - Last Filed: 09/23/21 20:41> ED Course Vital Signs 09/23/21 09/23/21 09/23/21 09:52 12:37 12:52 Temperature 96.7 F L 97.3 F L Pulse Rate 84 66 Respiratory 17 16 Rate Blood Pressure 134/84 137/72 [Left] O2 Sat by Pulse 100 100 96 Oximetry - Reevaluation(s) Reevaluation #1: 09/23/21 16:16 Patient has been accepted back to [facility]. <DARREL TATUM - Last Filed: 09/23/21 20:41> ED Medical Decision Making - Radiology Data Radiology results: report reviewed (Chest x-ray), image reviewed (Chest x-ray) interpreted by me: Chest x-ray-no definite focal infiltrates, [place] [address] XRay Report Signed Patient: HARRIS ANTUNEZ MR #: [id number] : 1975 Acct:[id number] Age/Sex: 45 / F ADM Date: 09/23/21 Loc: ED Attending Dr: Ordering Physician: STEPHANIE MCCAIN MD Date of Service: 09/23/21 Procedure(s): XR chest routine 2V Accession Number(s): [id number] cc: STEPHANIE MCCAIN MD Fluoro Time In Minutes: CHEST 2 VIEWS INDICATION / CLINICAL INFORMATION: Cough. COMPARISON: 03/05/2020 FINDINGS: SUPPORT DEVICES: None. HEART / MEDIASTINUM: No significant abnormality. LUNGS / PLEURA: Mild increased interstitial prominence in bilateral lungs No pneumothorax. ADDITIONAL FINDINGS: No significant additional findings. IMPRESSION: 1. Mild interstitial prominence within the lungs Signer Name: Chaparro Ashford MD Signed: 09/23/2021 8:11 AM Workstation Name: [id number] Transcribed By: GRACY Dictated By: ZHENG ASHFORD MD Electronically Authenticated By: ZHENG ASHFORD MD Signed Date/Time: 09/23/21810 DD/ 0 TD/TT: Print Cancel - Differential Diagnosis Cough, body aches, flu, URI, Covid <STEPHANIE MCCAIN - Last Filed: 09/23/21 10:36> Critical care attestation.: If time is entered above; I have spent that time in minutes in the direct care of this critically ill patient, excluding procedure time. <STEPHANIE MCCAIN - Last Filed: 09/23/21 10:36> Critical care attestation.: If time is entered above; I have spent that time in minutes in the direct care of this critically ill patient, excluding procedure time. <DARREL TATUM - Last Filed: 09/23/21 20:41> ED Disposition <STEPHANIE MCCAIN - Last Filed: 09/23/21 10:36> Is pt being admited?: No Does the pt Need Aspirin: No <DARREL TATUM - Last Filed: 09/23/21 20:41> Clinical Impression: Bipolar 1 disorder, depressed Disposition: [facility] Condition: Stable Referrals: PRIMARY CARE,MD [Primary Care Provider] - 3-5 Days
--- NOTE | 2021-09-23 08:16 | XRay Report ---
CHEST 2 VIEWS INDICATION / CLINICAL INFORMATION: Cough. COMPARISON: 03/05/2020 FINDINGS: SUPPORT DEVICES: None. HEART / MEDIASTINUM: No significant abnormality. LUNGS / PLEURA: Mild increased interstitial prominence in bilateral lungs No pneumothorax. ADDITIONAL FINDINGS: No significant additional findings. IMPRESSION: 1. Mild interstitial prominence within the lungs Signer Name: Chaparro Ashford MD Signed: 09/23/2021 8:11 AM Workstation Name: [id number]
[2021-09-23 14:01] VITALS: BP 137/72
== END ==
LOC: ED 03:48
DX: F31.9 Bipolar disorder, unspecified (principal); I10 Essential (primary) hypertension; F20.9 Schizophrenia, unspecified; G89.29 Other chronic pain; Z20.822 Contact with and (suspected) exposure to COVID-19
CPT/HCPCS: 71046; 87400; 99284; U0003